=== PATIENT | male | born 1960 | race Caucasian/White ===

== ENCOUNTER → 2016-10-17 | Outpatient (REF) | payer OTHER ==
[2016-10-17 16:58] LABS: ADD MORPHOLOGY? YES; BASO % 0.8 % (0.0-1.0); EOS # 0.2 K/mm3 (0.0-0.50); LARGE UNSTAINED CELL # 0.1 K/mm3 (0.0-0.4); LARGE UNSTAINED CELL % 2.2 % (0.0-4.0); LYMPH # 1.3 K/mm3 (1.5-4.5); LYMPH % 21.5 % (24.0-44.0); MEAN CORPUSCULAR HEMOGLOBIN 20.2 pg (27.0-33.0); MEAN CORPUSCULAR HGB CONC 28.6 g/dl (32.0-36.5); MEAN CORPUSCULAR VOLUME 70.6 fl (80.0-96.0); MONO # 0.4 K/mm3 (0.0-0.8); MONO % 6.1 % (0.0-5.0); NEUTROPHILS # 4.1 K/mm3 (1.8-7.7); NEUTROPHILS % 66.4 % (36.0-66.0); PLATELET COUNT, AUTOMATED 308 k/mm3 (150-450); RED CELL DISTRIBUTION WIDTH 16.9 % (11.5-14.5); WHITE BLOOD COUNT 6.1 K/mm3 (4.0-10.0)
[2016-10-17 18:16] LABS: ANISOCYTOSIS 1+; HYPOCHROMASIA 2+; MICROCYTOSIS 2+
== END | disposition home or self-care (01) ==
LOC: M SFHCPLAZ 09:32 → M LABDRAWC 09:47
PROVIDERS: ATTEND Internal Medicine Infectious Disease
DX: D50.9 Iron deficiency anemia, unspecified (principal)

== ENCOUNTER → 2016-10-17 | Outpatient (CLI) | payer OTHER ==
--- NOTE | 2016-10-17 10:40 | REP ---
Chest two views HISTORY: Shortness of breath Comparison: 07/14/2016 The lungs are clear. The heart is normal in size. The pulmonary vasculature is normal in appearance. There are old compression fractures of several mid thoracic vertebral bodies. IMPRESSION: No acute disease.
== END | disposition home or self-care (01) ==
LOC: M CLY 10:09
PROVIDERS: ATTEND Surgery
DX: R06.02 Shortness of breath (principal)

== ENCOUNTER → 2016-12-27 | Outpatient (REF) | payer OTHER | LOC: M LAB REF 16:14 | PROVIDERS: ATTEND Surgery | DX: I87.311 Chronic venous hypertension (idiopathic) with ulcer of right lower extremity (principal) ==

== ENCOUNTER → 2017-02-15 | Outpatient (CLI) | payer OTHER ==
[2017-02-15 14:00] LABS: ANION GAP 6 MEQ/L (8-16); BLOOD UREA NITROGEN 13 MG/DL (7-18); CALCIUM LEVEL 8.3 MG/DL (8.5-10.1); CARBON DIOXIDE LEVEL 29 MEQ/L (21-32); CHLORIDE LEVEL 105 MEQ/L (98-107); CREATININE FOR GFR 0.82 MG/DL (0.70-1.30); GLOMERULAR FILTRATION RATE > 60.0 (>56); GLUCOSE, FASTING 87 MG/DL (70-105); SODIUM LEVEL 140 MEQ/L (136-145)
== END ==
LOC: M LAB 12:42
PROVIDERS: ATTEND Surgery Vascular Surgery
DX: I70.244 Atherosclerosis of native arteries of left leg with ulceration of heel and midfoot (principal)

== ENCOUNTER → 2017-02-16 | Outpatient (CLI) | payer OTHER ==
[~2017-02-16] MED LIST: ELIQ5TAB PO; FOLI1TAB4 PO; GABA-282 PO; GABA-283 PO; HYDR-3719 PO; HYDRPOW48 PO; IRON50TA PO; ISOVUE-300 61% 50ML VIAL (Q9967) As Ordered ONE; LIDOCAINE 1% MDV 20ML VIAL As Ordered ONE; MIDAZOLAM INJ 2 MG/2 ML VIAL (J2250) As Ordered ONE; NORCO, ANEXSIA 5/325MG TABLET (HYDROcodone/ACETAMINOPHEN) As Ordered ONE; ROCE1INJ4 IV; fentaNYL 100 MCG/2 ML INJECTION (J3010) As Ordered ONE
--- NOTE | 2017-03-08 18:42 | REP ---
IMAGES DURING ANGIOGRAM OF ABDOMINAL AORTA AND RIGHT LOWER EXTREMITY: Multiple images are obtained during angiography of abdominal aorta and right lower extremity. Pigtail catheter is seen in the abdominal aorta. Contrast is injected with contrast extending through the arterial system of the right lower extremity. Fluoroscopy time 1.4 minutes. Signed by Van Low MD 03/08/2017 07:17 P
--- NOTE | 2017-03-28 10:58 | RO ---
DATE OF PROCEDURE: 02/16/2017 PREPROCEDURE DIAGNOSIS: Nonhealing right lower extremity venous stasis ulcer. POSTPROCEDURE DIAGNOSIS: Nonhealing right lower extremity venous stasis ulcer. PROCEDURE: Aortogram, iliofemoral angiogram, selective right common femoral artery catheter placement with right lower extremity angiogram, Mynx closure of the left common femoral arteriotomy. SURGEON: Dr. Ye Garvey. UNDERWRITING CLERKS SUPERVISOR: ANESTHESIA: Local with sedation with 2 mg of Versed and 125 mcg of Fentanyl. ESTIMATED BLOOD LOSS: FLUORO TIME: 1.4 minutes. CONTRAST: 15 mL. SEDATION TIME: From 8:55 a.m. to 9:45 a.m. with the sedation and cardiopulmonary monitoring performed by the nurse in the room under my supervision. I was present for and directed the entire case. COMPLICATIONS: None. DRAINS: None. SPECIMENS: None. IMPLANTS: Left femoral Mynx closure device. INDICATION: Patient is a 56-year-old male with nonhealing venous stasis ulcer who has undergone venous ablation as well as aggressive wound care with nonhealing of the right lower extremity wound. The patient was evaluated and noted to have diminished pulses in the right lower extremity and a right lower extremity angiogram with possible angioplasty and stent was recommended. Risks, benefits and alternative treatment options were discussed with the patient. Alternative treatment options including to but were not limited to no intervention with continued conservative therapy. Risks included but were not limited to infection, bleeding, renal failure requiring hemodialysis, possible need for open surgical intervention, cerebrovascular accident, myocardial infarction, pulmonary embolus, deep venous thrombosis (DVT), loss of limb, loss of life and poor outcome. Patient understands, accepts these risks and consents to proceed. PROCEDURE: The patient was taken to the angiography suite and placed supine on the angiography room table and then prepped and draped in a standard surgical fashion. After adequate prepping and draping and time out confirming the correct patient and procedure, the left common femoral artery was cannulated with a micropuncture needle after anesthetizing the overlying skin with 1% lidocaine. The micropuncture wire was advanced through the micropuncture needle which was upsized to a micropuncture sheath. A Bentson wire was advanced through the micropuncture sheath which was upsized to a #5-Estonian sheath. An Omniflush catheter was placed in the aorta and an aortogram was performed. Catheter was then pulled down to the level of the bifurcation iliac arteries and an iliofemoral angiogram was performed. Catheter was then directed over the bifurcation of the iliac arteries and placed in the right common femoral artery and a right lower extremity angiogram was performed. Catheter was then removed over a Bentson wire and a Mynx closure device was used to close the arteriotomy in the left common femoral artery with an additional 15 minutes of adjunctive pressure for hemostasis. Dressings were then applied. Patient tolerated the procedure well. All instrument, sponge and needle counts were correct at the end of the case. There were no complications. Dr. Garvey was present for and directed the entire case. Patient was transferred to the holding area and subsequently discharged in stable condition. RADIOLOGIC SUPERVISION INTERPRETATION: The initial aortogram showed the descending thoracic aorta from the diaphragm to the infrarenal aorta to be widely patent. The renal arteries were patent bilaterally as well as the superior mesenteric and celiac arteries. There was good filling of intercostal vessels off of the thoracic aorta as well as lumbar vessels off of the infrarenal aorta. There was some mild luminal irregularity in the infrarenal aorta but this did not appear to be significant or produce any limitation of flow. The left common femoral artery, superficial femoral artery, profunda femoris artery were widely patent proximally and there was no visualization of the left lower extremity below the puncture site. The left common iliac, external and internal iliac arteries were also widely patent. The right common iliac, external iliac and internal iliac as well as the common femoral artery were widely patent. A catheter was placed in the right common femoral artery and a right lower extremity angiogram was performed showing no disease noted in the common femoral, superficial femoral, profunda femoris or external iliac artery distally. The remainder of the superficial femoral artery was widely patent along its course into the popliteal artery with no disease noted. The above and below knee popliteal arteries were widely patent with some minor luminal irregularity. In the above knee popliteal artery, there was three vessel runoff in the below knee region via a small anterior tibial artery which was patent and had a high take off just below the level of the knee joint. The peroneal and posterior tibial arteries were patent as well. The anterior tibial artery was small with the posterior tibial artery being the dominant vessel. The posterior tibial and anterior tibial arteries were patent into the foot with good open vessels noted filling into the foot. A Mynx closure device was used to close the arteriotomy in the left common femoral artery.
== END ==
LOC: M IRPRO 06:55
PROVIDERS: ATTEND Surgery Vascular Surgery
DX: I70.244 Atherosclerosis of native arteries of left leg with ulceration of heel and midfoot (principal)
CPT/HCPCS: 36246; 75625; 75716; 99152; 99153; G0269

== ENCOUNTER → 2017-02-20 | Outpatient (REF) | payer OTHER | LOC: M LAB REF 16:29 | PROVIDERS: ATTEND Surgery | DX: I87.311 Chronic venous hypertension (idiopathic) with ulcer of right lower extremity (principal) ==

== ENCOUNTER → 2017-03-20 | Outpatient (REF) | payer OTHER ==
[~2017-03-20] MED LIST changes: -ELIQ5TAB PO; -FOLI1TAB4 PO; -GABA-283 PO; -HYDR-3719 PO; -IRON50TA PO; -ISOVUE-300 61% 50ML VIAL (Q9967) As Ordered ONE; -LIDOCAINE 1% MDV 20ML VIAL As Ordered ONE; -MIDAZOLAM INJ 2 MG/2 ML VIAL (J2250) As Ordered ONE; -NORCO, ANEXSIA 5/325MG TABLET (HYDROcodone/ACETAMINOPHEN) As Ordered ONE; -ROCE1INJ4 IV; -fentaNYL 100 MCG/2 ML INJECTION (J3010) As Ordered ONE
[2017-03-20 15:02] LABS: MEAN CORPUSCULAR HEMOGLOBIN 21.1 pg (27.0-33.0); MEAN CORPUSCULAR HGB CONC 29.6 g/dl (32.0-36.5); MEAN CORPUSCULAR VOLUME 71.3 fl (80.0-96.0); RED CELL DISTRIBUTION WIDTH 16.7 % (11.5-14.5); WHITE BLOOD COUNT 6.4 K/mm3 (4.0-10.0)
== END ==
LOC: M LAB REF 13:08
PROVIDERS: ATTEND Surgery
DX: I87.311 Chronic venous hypertension (idiopathic) with ulcer of right lower extremity (principal)

== ENCOUNTER → 2017-03-27 | Outpatient (REF) | payer OTHER ==
[2017-03-27 18:44] LABS: ANION GAP 6 MEQ/L (8-16); BLOOD UREA NITROGEN 11 MG/DL (7-18); CALCIUM LEVEL 8.4 MG/DL (8.5-10.1); CARBON DIOXIDE LEVEL 29 MEQ/L (21-32); CHLORIDE LEVEL 108 MEQ/L (98-107); CREATININE FOR GFR 0.87 MG/DL (0.70-1.30); GLOMERULAR FILTRATION RATE > 60.0 (>56); GLUCOSE, FASTING 57 MG/DL (70-105); POTASSIUM SERUM 4.8 MEQ/L (3.5-5.1); SODIUM LEVEL 143 MEQ/L (136-145)
== END ==
LOC: M LAB REF 16:36
PROVIDERS: ATTEND Surgery
DX: I87.311 Chronic venous hypertension (idiopathic) with ulcer of right lower extremity (principal)

== ENCOUNTER → 2017-03-29 | Outpatient (CLI) | payer OTHER ==
--- NOTE | 2017-03-30 11:12 | REP ---
RIGHT LOWER EXTREMITY DUPLEX DOPPLER VENOUS ULTRASOUND WITH EVALUATION FOR VENOUS REFLUX: Real-time sonographic compression and duplex Doppler interrogation of the right lower extremity deep vein system performed. Right common femoral, superficial femoral, and popliteal veins are fully compressible with transducer pressure and demonstrate normal spontaneous and phasic flow without evidence of deep venous thrombosis. Evaluation for venous reflux is performed and compared to a prior study of 03/02/2016. There is reflux in the right common femoral vein as well as proximal and mid superficial femoral vein and popliteal vein somewhat increased since the prior study. There is no anterior accessory greater saphenous vein present. Greater saphenous vein in the proximal thigh does not demonstrate reflux, AP diameter is 9 mm. There is reflux in the greater saphenous vein at the mid thigh level which measures 6 mm in diameter. There is no reflux in the greater saphenous vein at the level of the knee, AP diameter of that vessel is 3 mm. There is reflux in the less saphenous vein, AP diameter 5 mm. Mid thigh collateral vessel connects with the greater saphenous vein at the mid thigh level and then reconnects with the greater saphenous vein at the level of the knee. Another collateral connecting with the mid greater saphenous vein is seen posteriorly in the thigh and communicates with the lesser saphenous vein posterior to the knee, with mild reflux in that collateral vessel. A large right inguinal lymph node measures 5.1 x 1.0 x 2.6 cm. Signed by Van Low MD 03/30/2017 03:15 P
== END ==
LOC: M RAD 11:01
PROVIDERS: ATTEND Surgery
DX: I87.311 Chronic venous hypertension (idiopathic) with ulcer of right lower extremity (principal)

== ENCOUNTER → 2017-04-05 | Outpatient (REF) | payer OTHER ==
[~2017-04-05] MED LIST changes: +ELIQ5TAB PO; +FOLI1TAB4 PO; +GABA-283 PO; +HYDR-3719 PO; +IRON50TA PO; +ROCE1INJ4 IV
[2017-04-05 17:03] LABS: ADD MORPHOLOGY? YES; BASO # 0.1 K/mm3 (0.0-0.2); BASO % 1.4 % (0.0-1.0); EOS # 0.2 K/mm3 (0.0-0.50); EOS % 3.3 % (0.0-3.0); LARGE UNSTAINED CELL # 0.2 K/mm3 (0.0-0.4); LARGE UNSTAINED CELL % 2.2 % (0.0-4.0); LYMPH # 1.5 K/mm3 (1.5-4.5); MEAN CORPUSCULAR HEMOGLOBIN 21.3 pg (27.0-33.0); MEAN CORPUSCULAR HGB CONC 29.5 g/dl (32.0-36.5); MONO # 0.6 K/mm3 (0.0-0.8); MONO % 8.8 % (0.0-5.0); NEUTROPHILS # 4.1 K/mm3 (1.8-7.7); NEUTROPHILS % 62.4 % (36.0-66.0); PLATELET COUNT, AUTOMATED 246 k/mm3 (150-450); RED CELL DISTRIBUTION WIDTH 16.8 % (11.5-14.5); WHITE BLOOD COUNT 6.6 K/mm3 (4.0-10.0)
[2017-04-05 18:47] LABS: ANISOCYTOSIS 1+; HYPOCHROMASIA 2+; MICROCYTOSIS 2+; OVALOCYTES 1+
== END ==
LOC: M SFHCCLAY 10:53
PROVIDERS: ATTEND Nurse Practitioner
DX: Z80.6 Family history of leukemia (principal); Z12.5 Encounter for screening for malignant neoplasm of prostate

== ENCOUNTER → 2017-04-06 | Outpatient (CLI) | payer OTHER ==
--- NOTE | 2017-04-06 15:03 | REP ---
MRI RIGHT TIBIA-FIBULA WITHOUT AND WITH IV CONTRAST: HISTORY: Chronic venous hypertension. Ulcer right lower extremity. TECHNIQUE: Axial, coronal, and sagittal imaging planes are utilized. T1- and T2-weighted scans are obtained with and without fat saturation. Gadolinium enhancement dose is 20 mL of intravenous ProHance. The study was accomplished with the patient's wound dressing and compression boot in place. MRI FINDINGS: There is evidence of periosteal thickening and reaction along the anterior tibial cortex at the mid diaphysis level of the tibia. There is some underlying marrow edema associated with this. Periosteal reaction spans approximately 11 cm in craniocaudal length of the tibia. It is visible on coronal images along the medial cortex. No definite fibular periosteal reaction is seen. There is diffuse soft tissue edema in the calf soft tissues. No soft tissue abscess is seen. Post gadolinium enhanced images show no significant gadolinium enhancement. IMPRESSION: Chronic-appearing periosteal reaction along the anterior and medial cortex of the tibial diaphysis. Chronic osteomyelitis is difficult to exclude. No evidence of intraosseous tract or soft tissue abscess. Diffuse soft tissue edema. Signed by Cuba Maynard MD 04/06/2017 05:13 P
== END ==
LOC: M RAD 10:20
PROVIDERS: ATTEND Surgery
DX: I87.2 Venous insufficiency (chronic) (peripheral) (principal)

== ENCOUNTER 2017-04-26 14:33 | Outpatient (CLI) | payer OTHER ==
[~2017-04-26] VITALS: Ht 185.4 cm; Wt 105.6 kg
[~2017-04-26 14:33] MED LIST changes: -ELIQ5TAB PO; -FOLI1TAB4 PO; -GABA-283 PO; -HYDR-3719 PO; -IRON50TA PO; -ROCE1INJ4 IV; +SODIUM CHLORIDE 0.9% INJ 10 ML SYR IV SCH; +cefTRIAXone SOD 2 GM in D5W MINI-BAG PLUS 50 ML IV ONE
[2017-06-20] MEDS ORDERED: ROCE1INJ4 IV (11:06)
[2017-06-20] MEDS ORDERED: FOLI1TAB4 PO (11:06)
[2017-06-20] MEDS ORDERED: GABA-283 PO (11:06)
[2017-06-20] MEDS ORDERED: IRON50TA PO (11:06)
== END 2017-04-26 16:00 | disposition home or self-care (01) ==
LOC: M INFU 14:33
PROVIDERS: ATTEND Internal Medicine Infectious Disease
DX: M86.9 Osteomyelitis, unspecified (principal); A49.01 Methicillin susceptible Staphylococcus aureus infection, unspecified site; Z79.899 Other long term (current) drug therapy

== ENCOUNTER → 2017-04-26 | Outpatient (CLI) | payer OTHER ==
--- NOTE | 2017-04-26 16:51 | REP ---
Procedure: PICC line insertion with Paulino The procedure was performed under the direct supervision of Dr. Maynard. The risks and benefits of the procedure were explained to the patient and informed consent was obtained. The right brachial vein was localized using ultrasound guidance. The skin was prepped and draped in a sterile fashion. 2% lidocaine was used as a local anesthetic. Using ultrasound guidance the brachial vein was cannulated and a 0.018 guidewire was inserted and advanced to the SVC using fluoroscopic guidance. The needle was removed and a 4.5 Slovak dilator and peel-away sheath was inserted over the guide wire. A 4.5 Slovak single lumen catheter was cut to length of 46 cm. The dilator was removed and the catheter was inserted over the guide wire with the tip ending in the SVC. The peel-away sheath was removed and the catheter was flushed with heparinized saline as per Hospital protocol. The catheter was affixed to the skin and a sterile dressing was applied. The the patient tolerated the procedure well and there were no immediate complications. 0.3 minutes of fluoro time was utilized for this procedure. Reviewed by CHE Crowell 04/26/2017 03:55 PSigned by Cuba Maynard MD 04/26/2017 04:42 P
== END ==
LOC: M RADPRO 13:34
PROVIDERS: ATTEND Internal Medicine Infectious Disease
DX: A49.01 Methicillin susceptible Staphylococcus aureus infection, unspecified site (principal); Z79.899 Other long term (current) drug therapy; F17.210 Nicotine dependence, cigarettes, uncomplicated; I87.311 Chronic venous hypertension (idiopathic) with ulcer of right lower extremity

== ENCOUNTER 2017-05-01 15:26 | Emergency (ER) | payer OTHER ==
[~2017-05-01] VITALS: Ht 185.4 cm; Wt 105.1 kg
[~2017-05-01 15:26] MED LIST changes: -ELIQ5TAB PO; -FOLI1TAB4 PO; -GABA-283 PO; -HYDR-3719 PO; -IRON50TA PO; -ROCE1INJ4 IV
[2017-05-01 16:16] LABS: ADD MORPHOLOGY? YES; BASO # 0.1 K/mm3 (0.0-0.2); EOS # 0.2 K/mm3 (0.0-0.50); EOS % 2.7 % (0.0-3.0); LARGE UNSTAINED CELL # 0.1 K/mm3 (0.0-0.4); LYMPH # 1.8 K/mm3 (1.5-4.5); LYMPH % 21.7 % (24.0-44.0); MEAN CORPUSCULAR HGB CONC 30.3 g/dl (32.0-36.5); MEAN CORPUSCULAR VOLUME 69.3 fl (80.0-96.0); MONO # 0.4 K/mm3 (0.0-0.8); MONO % 5.1 % (0.0-5.0); NEUTROPHILS # 5.4 K/mm3 (1.8-7.7); NEUTROPHILS % 68.4 % (36.0-66.0); PLATELET COUNT, AUTOMATED 276 k/mm3 (150-450); RED CELL DISTRIBUTION WIDTH 16.7 % (11.5-14.5); WHITE BLOOD COUNT 7.9 K/mm3 (4.0-10.0)
[2017-05-01 16:23] LABS: INR 1.08
--- NOTE | 2017-05-01 16:27 | REP ---
Portable chest, 04:12 p.m., single AP view, the patient upright: Comparison is and 2016. The lung ferreira are clear. Cardiac size is normal. The octavia, mediastinum, and bony thorax are unchanged. There is a right upper extremity PICC line, not present previously, terminating satisfactorily in the superior vena cava. Impression: There are no acute cardiopulmonary findings. There is a right upper extremity PICC line. Signed by Van Ferrara MD 05/01/2017 04:19 P
[2017-05-01] MEDS ORDERED: GABAPENTIN 300 MG CAP PO ONE (16:30)
[2017-05-01] MEDS ORDERED: NORCO, ANEXSIA 5/325MG TABLET (HYDROcodone/ACETAMINOPHEN) PO ONE (16:30)
[2017-05-01 16:42] LABS: ALBUMIN 2.8 GM/DL (3.2-5.2); ALBUMIN/GLOBULIN RATIO 0.67 (1.00-1.93); ALKALINE PHOSPHATASE 92 U/L (45-117); ALT/SGPT 11 U/L (12-78); ANION GAP 7 MEQ/L (8-16); AST/SGOT 5 U/L (15-37); BILIRUBIN,DIRECT < 0.1 MG/DL (0.0-0.2); BILIRUBIN,TOTAL 0.2 MG/DL (0.2-1.0); BLOOD UREA NITROGEN 10 MG/DL (7-18); CALCIUM LEVEL 8.4 MG/DL (8.5-10.1); CARBON DIOXIDE LEVEL 26 MEQ/L (21-32); CHLORIDE LEVEL 104 MEQ/L (98-107); CREATININE FOR GFR 0.86 MG/DL (0.70-1.30); FREE T4 1.07 NG/DL (0.76-1.46); GLOMERULAR FILTRATION RATE > 60.0 (>56); GLUCOSE, FASTING 111 MG/DL (70-105); POTASSIUM SERUM 3.9 MEQ/L (3.5-5.1); SODIUM LEVEL 137 MEQ/L (136-145)
[2017-05-01] MEDS ORDERED: ISOVUE-370 76% 100ML VIAL (Q9967) As Ordered ONE (17:11)
[2017-05-01 17:20] LABS: ANISOCYTOSIS 1+; HYPOCHROMASIA 1+; MICROCYTOSIS 3+
[2017-05-01] MEDS ORDERED: HYDR-3719 PO (17:35)
--- NOTE | 2017-05-01 17:46 | REP ---
CT of the chest with IV contrast, pulmonary artery CT angiography: There are no comparison studies. There are no emboli in the pulmonary trunk or central pulmonary arteries. There are no emboli in the pulmonary artery lobe or segment branches. There is dependent atelectasis in the lung ferreira. Lung ferreira are otherwise clear. There are no acute infiltrates. There are no masses or nodules. There is a mildly enlarged right hilar node measuring up to 13 mm short axis. There is no left hilar lymph node enlargement . There is a calcified granuloma in the left hilar node. The thoracic aorta is unremarkable. Cardiac size is normal. There is no pericardial effusion. The visualized upper abdominal contents are unremarkable. Impression: There are no pulmonary emboli. There is an enlarged right hilar node. There is a calcified granuloma in the left hilar node. There is dependent atelectasis in the posterior lung ferreira. Lung ferreira otherwise clear. Signed by Van Ferrara MD 05/01/2017 05:37 P
[2017-05-01] MEDS ORDERED: APIXABAN 5 MG TAB (ELIQUIS) PO ONE (18:15)
[2017-05-01] MEDS ORDERED: ELIQ5TAB PO (18:16)
[2017-05-01] MEDS ORDERED: cefTRIAXone SOD 2 GM in D5W MINI-BAG PLUS 50 ML IV ONE (18:30)
[2017-05-01 18:41] VITALS: BP 115/71
[2017-05-01] MEDS ORDERED: SODIUM CHLORIDE 0.9% INJ 10 ML SYR IV ONE (18:45)
--- NOTE | 2017-05-03 11:14 | ECGEPIP ---
Stationary ECG Study [facility] - ED Test Date: 2017-05-01 Pat Name: HALEY HANSEN Department: Room: - Gender: M Attending Ambulatory Care: adams : 1960 Requested By: Benjamin Leach Order Number: [id number] Reading MD: Eulalia Gomez Measurements Intervals [place] Rate: 75 P: 52 [place]: 184 QRS: 3 QRSD: 104 T: -12 QT: 386 QTc: 433 Interpretive Statements SINUS RHYTHM NSTTW ABNORMALITY NO PRIOR FOR COMPARISON Electronically Signed On 05-03-2017 11:13:52 EDT by Eulalia Gomez
[2017-06-20] MEDS ORDERED: ROCE1INJ4 IV (11:06)
[2017-06-20] MEDS ORDERED: GABA-283 PO (11:06)
[2017-06-20] MEDS ORDERED: IRON50TA PO (11:06)
[2017-06-20] MEDS ORDERED: FOLI1TAB4 PO (11:06)
== END 2017-05-01 19:52 | disposition home or self-care (01) ==
LOC: M ED 15:26
DX: I82.A11 Acute embolism and thrombosis of right axillary vein (principal); R07.9 Chest pain, unspecified; M86.9 Osteomyelitis, unspecified; Z79.899 Other long term (current) drug therapy; Z95.9 Presence of cardiac and vascular implant and graft, unspecified
CPT/HCPCS: 71010; 71275; 80048; 80076; 82550; 82553; 84439; 84443; 85025; 85610; 85730; 87040; 93000; 93041; 94760; 96365; 99284; J0696; Q9967

== ENCOUNTER → 2017-05-01 | Outpatient (CLI) | payer OTHER ==
[~2017-05-01] MED LIST changes: +ELIQ5TAB PO; +FOLI1TAB4 PO; +GABA-283 PO; +HYDR-3719 PO; +IRON50TA PO; +ROCE1INJ4 IV; -SODIUM CHLORIDE 0.9% INJ 10 ML SYR IV SCH; -cefTRIAXone SOD 2 GM in D5W MINI-BAG PLUS 50 ML IV ONE
--- NOTE | 2017-05-01 15:16 | REP ---
RIGHT UPPER EXTREMITY DUPLEX DOPPLER VENOUS ULTRASOUND: Real-time compression and duplex Doppler interrogation of the right upper extremity deep vein system is performed. The right jugular vein is patent with no intraluminal thrombus, compressible with transducer pressure. There is a right arm PICC line in place. There is moderate thrombus surrounding the PICC line in the subclavian vein. There is also deep vein thrombosis in the right axillary and basilic veins surrounding the PICC line. Signed by Van Low MD 05/01/2017 03:32 P
== END ==
LOC: M RAD 13:36
PROVIDERS: ATTEND Internal Medicine Infectious Disease
DX: I82.B11 Acute embolism and thrombosis of right subclavian vein (principal); I82.A11 Acute embolism and thrombosis of right axillary vein; I82.611 Acute embolism and thrombosis of superficial veins of right upper extremity

== ENCOUNTER → 2017-05-04 | Outpatient (REF) | payer OTHER ==
[~2017-05-04] MED LIST changes: +ELIQ5TAB PO; +FOLI1TAB4 PO; +GABA-283 PO; +HYDR-3719 PO; +IRON50TA PO; +ROCE1INJ4 IV
[2017-05-04 12:14] LABS: ANION GAP 7 MEQ/L (8-16); BLOOD UREA NITROGEN 10 MG/DL (7-18); CALCIUM LEVEL 8.6 MG/DL (8.5-10.1); CARBON DIOXIDE LEVEL 28 MEQ/L (21-32); CHLORIDE LEVEL 110 MEQ/L (98-107); CREATININE FOR GFR 0.89 MG/DL (0.70-1.30); GLOMERULAR FILTRATION RATE > 60.0 (>56); GLUCOSE, FASTING 85 MG/DL (70-105); POTASSIUM SERUM 4.3 MEQ/L (3.5-5.1); SODIUM LEVEL 145 MEQ/L (136-145)
[2017-05-04 12:39] LABS: ADD MORPHOLOGY? YES; BASO # 0.1 K/mm3 (0.0-0.2); EOS # 0.2 K/mm3 (0.0-0.50); EOS % 2.7 % (0.0-3.0); LARGE UNSTAINED CELL # 0.1 K/mm3 (0.0-0.4); LARGE UNSTAINED CELL % 1.5 % (0.0-4.0); LYMPH # 1.9 K/mm3 (1.5-4.5); LYMPH % 24.5 % (24.0-44.0); MEAN CORPUSCULAR HEMOGLOBIN 21.2 pg (27.0-33.0); MEAN CORPUSCULAR HGB CONC 30.4 g/dl (32.0-36.5); MEAN CORPUSCULAR VOLUME 69.8 fl (80.0-96.0); MONO # 0.4 K/mm3 (0.0-0.8); MONO % 5.4 % (0.0-5.0); NEUTROPHILS % 64.9 % (36.0-66.0); PLATELET COUNT, AUTOMATED 289 k/mm3 (150-450); RED CELL DISTRIBUTION WIDTH 16.6 % (11.5-14.5); WHITE BLOOD COUNT 7.6 K/mm3 (4.0-10.0)
[2017-05-04 13:23] LABS: ANISOCYTOSIS 1+; HYPOCHROMASIA 1+; OVALOCYTES 1+
[2017-05-04 13:24] LABS: MICROCYTOSIS 3+
[2017-05-04 14:15] LABS: ERYTHROCYTE SEDIMENTATION RATE 63 mm/hr (0-20)
== END ==
LOC: M LAB REF 11:35
PROVIDERS: ATTEND Internal Medicine Infectious Disease
DX: A49.01 Methicillin susceptible Staphylococcus aureus infection, unspecified site (principal); M86.661 Other chronic osteomyelitis, right tibia and fibula

== ENCOUNTER → 2017-05-07 | Outpatient (REF) | payer OTHER ==
[2017-05-07 18:52] LABS: ANION GAP 9 MEQ/L (8-16); BLOOD UREA NITROGEN 10 MG/DL (7-18); CALCIUM LEVEL 8.5 MG/DL (8.5-10.1); CARBON DIOXIDE LEVEL 25 MEQ/L (21-32); CHLORIDE LEVEL 107 MEQ/L (98-107); CREATININE FOR GFR 0.92 MG/DL (0.70-1.30); GLOMERULAR FILTRATION RATE > 60.0 (>56); GLUCOSE, FASTING 92 MG/DL (70-105); POTASSIUM SERUM 3.9 MEQ/L (3.5-5.1); SODIUM LEVEL 141 MEQ/L (136-145)
[2017-05-07 20:15] LABS: ADD MORPHOLOGY? YES; BASO % 0.8 % (0.0-1.0); EOS # 0.1 K/mm3 (0.0-0.50); EOS % 2.5 % (0.0-3.0); LARGE UNSTAINED CELL # 0.1 K/mm3 (0.0-0.4); LARGE UNSTAINED CELL % 1.7 % (0.0-4.0); LYMPH # 1.4 K/mm3 (1.5-4.5); LYMPH % 26.8 % (24.0-44.0); MEAN CORPUSCULAR HEMOGLOBIN 21.8 pg (27.0-33.0); MEAN CORPUSCULAR HGB CONC 31.1 g/dl (32.0-36.5); MEAN CORPUSCULAR VOLUME 70.2 fl (80.0-96.0); MONO # 0.4 K/mm3 (0.0-0.8); MONO % 6.7 % (0.0-5.0); NEUTROPHILS # 3.3 K/mm3 (1.8-7.7); NEUTROPHILS % 61.5 % (36.0-66.0); PLATELET COUNT, AUTOMATED 239 k/mm3 (150-450); RED CELL DISTRIBUTION WIDTH 16.7 % (11.5-14.5); WHITE BLOOD COUNT 5.3 K/mm3 (4.0-10.0)
[2017-05-07 21:19] LABS: ERYTHROCYTE SEDIMENTATION RATE 75 mm/hr (0-20)
[2017-05-07 21:29] LABS: ANISOCYTOSIS 2+; HYPOCHROMASIA 1+; MICROCYTOSIS 2+
== END ==
LOC: M LAB REF 18:10
PROVIDERS: ATTEND Internal Medicine Infectious Disease
DX: A49.01 Methicillin susceptible Staphylococcus aureus infection, unspecified site (principal)

== ENCOUNTER → 2017-05-14 | Outpatient (REF) | payer OTHER ==
[2017-05-14 15:24] LABS: ADD MORPHOLOGY? YES; BASO % 0.9 % (0.0-1.0); EOS # 0.2 K/mm3 (0.0-0.50); EOS % 2.8 % (0.0-3.0); LARGE UNSTAINED CELL # 0.1 K/mm3 (0.0-0.4); LARGE UNSTAINED CELL % 2.1 % (0.0-4.0); LYMPH # 1.2 K/mm3 (1.5-4.5); LYMPH % 22.4 % (24.0-44.0); MEAN CORPUSCULAR HEMOGLOBIN 21.5 pg (27.0-33.0); MEAN CORPUSCULAR HGB CONC 30.6 g/dl (32.0-36.5); MEAN CORPUSCULAR VOLUME 70.1 fl (80.0-96.0); MONO # 0.4 K/mm3 (0.0-0.8); MONO % 7.3 % (0.0-5.0); NEUTROPHILS # 3.4 K/mm3 (1.8-7.7); NEUTROPHILS % 64.5 % (36.0-66.0); PLATELET COUNT, AUTOMATED 195 k/mm3 (150-450); RED CELL DISTRIBUTION WIDTH 17.4 % (11.5-14.5); WHITE BLOOD COUNT 5.3 K/mm3 (4.0-10.0)
[2017-05-14 15:50] LABS: ERYTHROCYTE SEDIMENTATION RATE 70 mm/hr (0-20)
[2017-05-14 16:07] LABS: ANION GAP 10 MEQ/L (8-16); BLOOD UREA NITROGEN 10 MG/DL (7-18); CALCIUM LEVEL 8.1 MG/DL (8.5-10.1); CARBON DIOXIDE LEVEL 25 MEQ/L (21-32); CHLORIDE LEVEL 107 MEQ/L (98-107); CREATININE FOR GFR 0.83 MG/DL (0.70-1.30); GLOMERULAR FILTRATION RATE > 60.0 (>56); GLUCOSE, FASTING 119 MG/DL (70-105); POTASSIUM SERUM 4.2 MEQ/L (3.5-5.1); SODIUM LEVEL 142 MEQ/L (136-145)
[2017-05-14 16:49] LABS: ANISOCYTOSIS 1+
[2017-05-14 16:50] LABS: HYPOCHROMASIA 1+; MICROCYTOSIS 3+; SCHISTOCYTES 1+
[2017-05-14 16:51] LABS: OVALOCYTES 1+; POIKILOCYTOSIS 1+; POLYCHROMASIA 1+
== END ==
LOC: M LAB REF 14:52
PROVIDERS: ATTEND Internal Medicine Infectious Disease
DX: A49.01 Methicillin susceptible Staphylococcus aureus infection, unspecified site (principal)

== ENCOUNTER → 2017-05-21 | Outpatient (REF) | payer OTHER ==
[2017-05-21 16:44] LABS: ADD MORPHOLOGY? YES; BASO % 0.9 % (0.0-1.0); EOS # 0.1 K/mm3 (0.0-0.50); EOS % 2.4 % (0.0-3.0); LARGE UNSTAINED CELL # 0.1 K/mm3 (0.0-0.4); LARGE UNSTAINED CELL % 1.3 % (0.0-4.0); LYMPH # 1.5 K/mm3 (1.5-4.5); LYMPH % 24.3 % (24.0-44.0); MEAN CORPUSCULAR HEMOGLOBIN 21.6 pg (27.0-33.0); MEAN CORPUSCULAR HGB CONC 30.3 g/dl (32.0-36.5); MEAN CORPUSCULAR VOLUME 71.1 fl (80.0-96.0); MONO # 0.4 K/mm3 (0.0-0.8); MONO % 6.9 % (0.0-5.0); NEUTROPHILS # 3.7 K/mm3 (1.8-7.7); NEUTROPHILS % 64.2 % (36.0-66.0); PLATELET COUNT, AUTOMATED 209 k/mm3 (150-450); RED CELL DISTRIBUTION WIDTH 18.1 % (11.5-14.5); WHITE BLOOD COUNT 5.8 K/mm3 (4.0-10.0)
[2017-05-21 17:06] LABS: HYPOCHROMASIA 1+; MICROCYTOSIS 1+
[2017-05-21 17:14] LABS: ERYTHROCYTE SEDIMENTATION RATE 82 mm/hr (0-20)
[2017-05-21 18:04] LABS: ANION GAP 9 MEQ/L (8-16); BLOOD UREA NITROGEN 8 MG/DL (7-18); CALCIUM LEVEL 8.4 MG/DL (8.5-10.1); CARBON DIOXIDE LEVEL 25 MEQ/L (21-32); CHLORIDE LEVEL 106 MEQ/L (98-107); CREATININE FOR GFR 0.83 MG/DL (0.70-1.30); GLOMERULAR FILTRATION RATE > 60.0 (>56); GLUCOSE, FASTING 74 MG/DL (70-105); POTASSIUM SERUM 4.2 MEQ/L (3.5-5.1); SODIUM LEVEL 140 MEQ/L (136-145)
== END ==
LOC: M LAB REF 15:46
PROVIDERS: ATTEND Internal Medicine Infectious Disease
DX: A49.01 Methicillin susceptible Staphylococcus aureus infection, unspecified site (principal); I87.311 Chronic venous hypertension (idiopathic) with ulcer of right lower extremity; M86.661 Other chronic osteomyelitis, right tibia and fibula

== ENCOUNTER → 2017-05-24 | Outpatient (CLI) | payer OTHER ==
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
== END ==
LOC: M PAIN 15:00
PROVIDERS: ATTEND Anesthesiology
DX: M54.5 Low back pain (principal); L97.814 Non-pressure chronic ulcer of other part of right lower leg with necrosis of bone; M86.361 Chronic multifocal osteomyelitis, right tibia and fibula; I87.311 Chronic venous hypertension (idiopathic) with ulcer of right lower extremity; Z89.512 Acquired absence of left leg below knee; E53.8 Deficiency of other specified B group vitamins; D50.9 Iron deficiency anemia, unspecified; A49.01 Methicillin susceptible Staphylococcus aureus infection, unspecified site; A49.8 Other bacterial infections of unspecified site; G89.4 Chronic pain syndrome; M79.89 Other specified soft tissue disorders; Z79.891 Long term (current) use of opiate analgesic; Z72.0 Tobacco use; Z79.899 Other long term (current) drug therapy

== ENCOUNTER → 2017-05-28 | Outpatient (REF) | payer OTHER ==
[2017-05-28 13:51] LABS: ANION GAP 10 MEQ/L (8-16); BLOOD UREA NITROGEN 14 MG/DL (7-18); CALCIUM LEVEL 7.9 MG/DL (8.5-10.1); CARBON DIOXIDE LEVEL 23 MEQ/L (21-32); CHLORIDE LEVEL 111 MEQ/L (98-107); CREATININE FOR GFR 0.87 MG/DL (0.70-1.30); GLOMERULAR FILTRATION RATE > 60.0 (>56); GLUCOSE, FASTING 112 MG/DL (70-105); SODIUM LEVEL 144 MEQ/L (136-145)
[2017-05-28 14:10] LABS: ADD MORPHOLOGY? YES; BASO % 0.8 % (0.0-1.0); EOS # 0.2 K/mm3 (0.0-0.50); EOS % 2.5 % (0.0-3.0); LARGE UNSTAINED CELL # 0.1 K/mm3 (0.0-0.4); LARGE UNSTAINED CELL % 1.5 % (0.0-4.0); LYMPH # 1.1 K/mm3 (1.5-4.5); LYMPH % 18.8 % (24.0-44.0); MONO # 0.3 K/mm3 (0.0-0.8); MONO % 5.7 % (0.0-5.0); NEUTROPHILS # 4.2 K/mm3 (1.8-7.7); NEUTROPHILS % 70.6 % (36.0-66.0); PLATELET COUNT, AUTOMATED 198 k/mm3 (150-450); RED CELL DISTRIBUTION WIDTH 17.1 % (11.5-14.5); WHITE BLOOD COUNT 5.9 K/mm3 (4.0-10.0)
[2017-05-28 14:32] LABS: ANISOCYTOSIS 1+; HYPOCHROMASIA 2+; MICROCYTOSIS 2+; OVALOCYTES 1+
[2017-05-28 14:39] LABS: ERYTHROCYTE SEDIMENTATION RATE 79 mm/hr (0-20)
== END ==
LOC: M SHH 13:04
PROVIDERS: ATTEND Internal Medicine Infectious Disease
DX: A49.01 Methicillin susceptible Staphylococcus aureus infection, unspecified site (principal)

== ENCOUNTER → 2017-06-12 | Outpatient (CLI) | payer OTHER ==
[2017-06-12 13:56] LABS: ANION GAP 8 MEQ/L (8-16); BLOOD UREA NITROGEN 11 MG/DL (7-18); CALCIUM LEVEL 8.5 MG/DL (8.5-10.1); CARBON DIOXIDE LEVEL 25 MEQ/L (21-32); CHLORIDE LEVEL 108 MEQ/L (98-107); CREATININE FOR GFR 0.82 MG/DL (0.70-1.30); GLOMERULAR FILTRATION RATE > 60.0 (>56); GLUCOSE, FASTING 64 MG/DL (70-105); POTASSIUM SERUM 4.3 MEQ/L (3.5-5.1); SODIUM LEVEL 141 MEQ/L (136-145)
[2017-06-12 14:11] LABS: ADD MANUAL DIFFER YES; MEAN CORPUSCULAR HEMOGLOBIN 22.5 pg (27.0-33.0); MEAN CORPUSCULAR HGB CONC 32.1 g/dl (32.0-36.5); MEAN CORPUSCULAR VOLUME 70.1 fl (80.0-96.0); PLATELET COUNT, AUTOMATED 219 k/mm3 (150-450); RED CELL DISTRIBUTION WIDTH 17.4 % (11.5-14.5); WHITE BLOOD COUNT 5.3 K/mm3 (4.0-10.0)
[2017-06-12 15:25] LABS: ANISOCYTOSIS 2+; EOSINOPHILS 3 % (0-5); MICROCYTOSIS 2+
[2017-06-12 15:26] LABS: HYPOCHROMASIA 1+
[2017-06-12 15:31] LABS: ERYTHROCYTE SEDIMENTATION RATE 54 mm/hr (0-20)
== END ==
LOC: M LAB 12:35
PROVIDERS: ATTEND Internal Medicine Infectious Disease
DX: A49.01 Methicillin susceptible Staphylococcus aureus infection, unspecified site (principal)

== ENCOUNTER → 2017-06-14 | Outpatient (CLI) | payer OTHER ==
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
== END ==
LOC: M PAIN 14:30
PROVIDERS: ATTEND Anesthesiology
DX: G89.4 Chronic pain syndrome (principal); M54.5 Low back pain; L97.929 Non-pressure chronic ulcer of unspecified part of left lower leg with unspecified severity; D64.9 Anemia, unspecified; Z89.512 Acquired absence of left leg below knee; Z79.891 Long term (current) use of opiate analgesic; Z79.01 Long term (current) use of anticoagulants; Z79.899 Other long term (current) drug therapy

== ENCOUNTER → 2017-07-05 | Outpatient (CLI) | payer OTHER ==
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
== END ==
LOC: M PAIN 14:00
PROVIDERS: ATTEND Anesthesiology
DX: G89.4 Chronic pain syndrome (principal); M54.5 Low back pain; I87.311 Chronic venous hypertension (idiopathic) with ulcer of right lower extremity; R26.9 Unspecified abnormalities of gait and mobility; F17.210 Nicotine dependence, cigarettes, uncomplicated; D50.9 Iron deficiency anemia, unspecified; Z79.01 Long term (current) use of anticoagulants; Z79.899 Other long term (current) drug therapy

== ENCOUNTER → 2017-08-28 | Outpatient (REF) | payer OTHER ==
[2017-08-28 19:36] LABS: MEAN CORPUSCULAR HEMOGLOBIN 21.3 pg (27.0-33.0); MEAN CORPUSCULAR HGB CONC 29.7 g/dl (32.0-36.5); MEAN CORPUSCULAR VOLUME 71.8 fl (80.0-96.0); PLATELET COUNT, AUTOMATED 320 10^3/uL (150-450); RED CELL DISTRIBUTION WIDTH 17.3 % (11.5-14.5); WHITE BLOOD COUNT 8.3 10^3/uL (4.0-10.0)
[2017-08-28 20:20] LABS: ALBUMIN 2.5 GM/DL (3.2-5.2); ALBUMIN/GLOBULIN RATIO 0.61 (1.00-1.93); ALKALINE PHOSPHATASE 82 U/L (45-117); ALT/SGPT 23 U/L (12-78); ANION GAP 6 MEQ/L (8-16); AST/SGOT 9 U/L (7-37); BILIRUBIN,TOTAL 0.2 MG/DL (0.2-1.0); BLOOD UREA NITROGEN 11 MG/DL (7-18); CALCIUM LEVEL 8.4 MG/DL (8.5-10.1); CARBON DIOXIDE LEVEL 28 MEQ/L (21-32); CHLORIDE LEVEL 104 MEQ/L (98-107); CREATININE FOR GFR 0.79 MG/DL (0.70-1.30); GLOMERULAR FILTRATION RATE > 60.0 (>56); GLUCOSE, FASTING 78 MG/DL (70-105); POTASSIUM SERUM 4.6 MEQ/L (3.5-5.1); SODIUM LEVEL 138 MEQ/L (136-145); TOTAL PROTEIN 6.6 GM/DL (6.4-8.2)
== END ==
LOC: M LAB REF 17:35
PROVIDERS: ATTEND Surgery
DX: I87.311 Chronic venous hypertension (idiopathic) with ulcer of right lower extremity (principal)

== ENCOUNTER → 2017-09-19 | Outpatient (CLI) | payer OTHER | LOC: M RAD 12:35 | PROVIDERS: ATTEND Surgery | DX: I87.311 Chronic venous hypertension (idiopathic) with ulcer of right lower extremity (principal); Z53.9 Procedure and treatment not carried out, unspecified reason ==

== ENCOUNTER → 2017-09-26 | Outpatient (CLI) | payer OTHER | LOC: M PAIN 14:30 | DX: G89.21 Chronic pain due to trauma (principal); M86.361 Chronic multifocal osteomyelitis, right tibia and fibula; F17.210 Nicotine dependence, cigarettes, uncomplicated; Z79.899 Other long term (current) drug therapy; Z89.512 Acquired absence of left leg below knee | CPT/HCPCS: G0463 ==

== ENCOUNTER → 2017-09-27 | Outpatient (CLI) | payer OTHER ==
[~2017-09-27] MED LIST changes: +PROHANCE 279.3MG/ML 15ML VIAL (A9576) As Ordered ONE; +PROHANCE 279.3MG/ML 5ML VIAL (A9576) As Ordered ONE
--- NOTE | 2017-09-27 13:41 | REP ---
MRI RIGHT LOWER LEG: Multiple sequences obtained in the axial, coronal and sagittal planes. Comparison is made with a prior study 04/06/2017. Once again, there is an area of ill-defined low signal T1 and high signal T2 weighted images in the mid shaft of the tibia, unchanged since the prior exam. There is chronic appear periosteal thickening anteromedially essentially unchanged. Similar findings are seen to a lesser extent in the adjacent shaft of the fibula. Findings are most consistent with chronic osteomyelitis. There is diffuse ill-defined high signal in the adjacent soft tissues surrounding these bones, likely representing cellulitis. There is diffuse superficial soft tissue edema. No abscess collection is seen. IMPRESSION: Relatively stable findings compatible with chronic osteomyelitis involving the mid shaft of the tibia and fibula with associated cellulitis and soft tissue edema. No new abscess. Signed by Van Low MD 09/27/2017 08:39 P
== END ==
LOC: M RAD 11:00
PROVIDERS: ATTEND Surgery
DX: I87.311 Chronic venous hypertension (idiopathic) with ulcer of right lower extremity (principal)
CPT/HCPCS: 73718; A9576

== ENCOUNTER 2017-10-11 13:36 | Day surgery (SDC) | payer OTHER ==
[2017-10-11] MEDS ORDERED: PROPOFOL 200 MG/20 ML VIAL As Ordered ×2 (13:40→13:41)
[2017-10-11] MEDS ORDERED: MIDAZOLAM INJ 2 MG/2 ML VIAL (J2250) As Ordered (13:40)
[2017-10-11] MEDS ORDERED: LIDOCAINE 2% INJ 100 MG/5 ML SDV (FOR ANES.) As Ordered (13:40)
[2017-10-11] MEDS ORDERED: fentaNYL 100 MCG/2 ML INJECTION (J3010) As Ordered (13:41)
[2017-10-11] MEDS: LR 1,000 ML IV (14:42)
[2017-10-11] MEDS ORDERED: PERCOCET 5MG/325MG TAB As Ordered (16:21)
[2017-10-11] MEDS ORDERED: METOCLOPRAMIDE INJ 10MG/2ML VIAL (J2765) IV (16:30)
[2017-10-11] MEDS: PERCOCET 5MG/325MG TAB PO ×2 (16:30→16:59)
[2017-10-11] MEDS ORDERED: ONDANSETRON 4MG/2ML VIAL (J2405) IV (16:30)
[2017-10-11] MEDS ORDERED: LR 1,000 ML IV (16:30)
[2017-10-11] MEDS ORDERED: fentaNYL 100 MCG/2 ML INJECTION (J3010) IV (16:30)
[2017-10-11] MEDS: GABAPENTIN 400 MG CAP PO (16:44)
== END 2017-10-11 17:05 | disposition home or self-care (01) ==
LOC: M OR 13:36 → M RR INP 16:00 → M OR 16:00 → M SDC 13:36
DX: L97.213 Non-pressure chronic ulcer of right calf with necrosis of muscle (principal); M86.8X7 Other osteomyelitis, ankle and foot; I89.0 Lymphedema, not elsewhere classified; I73.9 Peripheral vascular disease, unspecified; Z86.718 Personal history of other venous thrombosis and embolism; Z86.2 Personal history of diseases of the blood and blood-forming organs and certain disorders involving the immune mechanism; Z97.14 Presence of artificial left leg (complete) (partial); Z72.0 Tobacco use
CPT/HCPCS: 11043

== ENCOUNTER 2017-12-04 12:35 | Day surgery (SDC) | payer OTHER ==
[2017-12-04] MEDS ORDERED: PROPOFOL 200 MG/20 ML VIAL As Ordered ×2 (13:23→14:37)
[2017-12-04] MEDS ORDERED: LIDOCAINE 2% INJ 100 MG/5 ML SDV (FOR ANES.) As Ordered (13:24)
[2017-12-04] MEDS ORDERED: MIDAZOLAM INJ 2 MG/2 ML VIAL (J2250) As Ordered (13:27)
[2017-12-04] MEDS ORDERED: fentaNYL 100 MCG/2 ML INJECTION (J3010) As Ordered (13:28)
[2017-12-04] MEDS: LR 1,000 ML IV (13:40)
[2017-12-04] MEDS: HEPARIN SOD (PORCINE) 5000 UNITS/ML VIAL As Ordered (14:06)
[2017-12-04] MEDS ORDERED: SUCCINYLCHOLINE 100 MG/5 ML SYRINGE (J0330) As Ordered (14:40)
[2017-12-04] MEDS ORDERED: ROCURONIUM BROMIDE 50 MG/5 ML VIAL As Ordered (14:40)
[2017-12-04] MEDS ORDERED: ONDANSETRON 4MG/2ML VIAL (J2405) IV (15:45)
[2017-12-04] MEDS ORDERED: fentaNYL 100 MCG/2 ML INJECTION (J3010) IV (15:45)
[2017-12-04] MEDS ORDERED: LR 1,000 ML IV (15:45)
[2017-12-04] MEDS: PERCOCET 5MG/325MG TAB PO (16:41)
== END 2017-12-04 17:10 | disposition home or self-care (01) ==
LOC: M OR 12:36 → M SDC 12:35
DX: L97.914 Non-pressure chronic ulcer of unspecified part of right lower leg with necrosis of bone (principal); I87.311 Chronic venous hypertension (idiopathic) with ulcer of right lower extremity; I70.261 Atherosclerosis of native arteries of extremities with gangrene, right leg; F17.218 Nicotine dependence, cigarettes, with other nicotine-induced disorders; R23.3 Spontaneous ecchymoses; G62.9 Polyneuropathy, unspecified; Z79.899 Other long term (current) drug therapy; Z89.512 Acquired absence of left leg below knee; Z86.2 Personal history of diseases of the blood and blood-forming organs and certain disorders involving the immune mechanism; Z86.718 Personal history of other venous thrombosis and embolism; Z97.14 Presence of artificial left leg (complete) (partial)
CPT/HCPCS: 11043

== ENCOUNTER → 2017-12-31 | Outpatient (REF) | payer OTHER ==
[2017-12-31 12:21] LABS: BASO # 0.1 10^3/uL (0.0-0.2); BASO % 1.1 % (0.0-1.0); EOS # 0.2 10^3/uL (0.0-0.50); EOS % 2.6 % (0.0-3.0); HEMATOCRIT 35.3 % (42.0-52.0); HEMOGLOBIN 10.7 g/dl (14.0-18.0); IMMATURE GRANULOCYTE % 0.3 % (0-3.0); LYMPH # 1.9 10^3/uL (1.5-4.5); LYMPH % 21.3 % (24.0-44.0); MEAN CORPUSCULAR HEMOGLOBIN 20.8 pg (27.0-33.0); MEAN CORPUSCULAR HGB CONC 30.3 g/dl (32.0-36.5); MEAN CORPUSCULAR VOLUME 68.5 fl (80.0-96.0); MONO % 10.9 % (0.0-5.0); NEUTROPHILS # 5.8 10^3/uL (1.8-7.7); NEUTROPHILS % 63.8 % (36.0-66.0); PLATELET COUNT, AUTOMATED 297 10^3/uL (150-450); RED BLOOD COUNT 5.15 10^6/uL (4.30-6.10); RED CELL DISTRIBUTION WIDTH 17.5 % (11.5-14.5); WHITE BLOOD COUNT 9.1 10^3/uL (4.0-10.0)
[2017-12-31 12:50] LABS: ERYTHROCYTE SEDIMENTATION RATE 68 mm/hr (0-20)
[2017-12-31 12:55] LABS: FOLATE 6.1 NG/ML; VITAMIN B12 LEVEL 449 PG/ML
[2017-12-31 12:58] LABS: ALBUMIN 3.1 GM/DL (3.2-5.2); ALKALINE PHOSPHATASE 109 U/L (45-117); ALT/SGPT 15 U/L (12-78); ANION GAP 4 MEQ/L (8-16); AST/SGOT 9 U/L (7-37); BILIRUBIN,TOTAL 0.2 MG/DL (0.2-1.0); BLOOD UREA NITROGEN 9 MG/DL (7-18); CARBON DIOXIDE LEVEL 30 MEQ/L (21-32); CHLORIDE LEVEL 109 MEQ/L (98-107); CREATININE FOR GFR 0.97 MG/DL (0.70-1.30); GLOMERULAR FILTRATION RATE > 60.0 (>56); GLUCOSE, FASTING 72 MG/DL (70-100); IRON (FE) 20 UG/DL (65-175); PERCENT SATURATION 5.1 % (19.7-50.0); POTASSIUM SERUM 4.8 MEQ/L (3.5-5.1); SODIUM LEVEL 143 MEQ/L (136-145); TOTAL IRON BINDING CAPACITY 394 UG/DL (250-450); TOTAL PROTEIN 7.5 GM/DL (6.4-8.2)
== END ==
LOC: M SFHCPLAZ 11:10
DX: M86.361 Chronic multifocal osteomyelitis, right tibia and fibula (principal); D50.9 Iron deficiency anemia, unspecified; E53.8 Deficiency of other specified B group vitamins
CPT/HCPCS: 82746

== ENCOUNTER → 2018-01-09 | Outpatient (CLI) | payer OTHER | LOC: M PAIN 08:30 | DX: M79.604 Pain in right leg (principal); G89.21 Chronic pain due to trauma; I87.311 Chronic venous hypertension (idiopathic) with ulcer of right lower extremity; M86.361 Chronic multifocal osteomyelitis, right tibia and fibula; D64.9 Anemia, unspecified; F17.210 Nicotine dependence, cigarettes, uncomplicated; Z79.891 Long term (current) use of opiate analgesic; Z79.899 Other long term (current) drug therapy; Z89.512 Acquired absence of left leg below knee | CPT/HCPCS: G0463 ==

== ENCOUNTER → 2018-02-08 | Outpatient (CLI) | payer OTHER | LOC: M PAIN 08:30 | DX: M79.604 Pain in right leg (principal); G89.21 Chronic pain due to trauma; L97.814 Non-pressure chronic ulcer of other part of right lower leg with necrosis of bone; F17.210 Nicotine dependence, cigarettes, uncomplicated; Z79.891 Long term (current) use of opiate analgesic; Z79.899 Other long term (current) drug therapy | CPT/HCPCS: G0463 ==

== ENCOUNTER → 2018-04-12 | Outpatient (CLI) | payer OTHER | LOC: M PAIN 08:30 | DX: L97.814 Non-pressure chronic ulcer of other part of right lower leg with necrosis of bone (principal); G89.21 Chronic pain due to trauma; F17.210 Nicotine dependence, cigarettes, uncomplicated; Z79.899 Other long term (current) drug therapy; Z79.891 Long term (current) use of opiate analgesic; Z89.512 Acquired absence of left leg below knee | CPT/HCPCS: G0463 ==

== ENCOUNTER → 2018-05-23 | Outpatient (CLI) | payer OTHER | LOC: M PAIN 09:30 | DX: G89.21 Chronic pain due to trauma (principal); L97.814 Non-pressure chronic ulcer of other part of right lower leg with necrosis of bone; D64.9 Anemia, unspecified; F17.210 Nicotine dependence, cigarettes, uncomplicated; M86.661 Other chronic osteomyelitis, right tibia and fibula; Z79.891 Long term (current) use of opiate analgesic; Z89.512 Acquired absence of left leg below knee; Z79.899 Other long term (current) drug therapy | CPT/HCPCS: G0463 ==

== ENCOUNTER → 2018-06-20 | Outpatient (REF) | payer OTHER ==
[2018-06-20 17:48] LABS: ALBUMIN 2.7 GM/DL (3.2-5.2); ALBUMIN/GLOBULIN RATIO 0.68 (1.00-1.93); ALKALINE PHOSPHATASE 91 U/L (45-117); ALT/SGPT 14 U/L (12-78); ANION GAP 3 MEQ/L (8-16); AST/SGOT 7 U/L (7-37); BILIRUBIN,TOTAL 0.2 MG/DL (0.2-1.0); BLOOD UREA NITROGEN 11 MG/DL (7-18); C REACTIVE PROTEIN QUANTITATIV 2.71 MG/DL (0.00-0.30); CALCIUM LEVEL 8.2 MG/DL (8.5-10.1); CARBON DIOXIDE LEVEL 30 MEQ/L (21-32); CHLORIDE LEVEL 108 MEQ/L (98-107); CHOLESTEROL LEVEL 129 MG/DL (<200); CHOLESTEROL RISK RATIO 4.607 (<5); CREATININE FOR GFR 0.93 MG/DL (0.70-1.30); GLOMERULAR FILTRATION RATE > 60.0 (>56); GLUCOSE, FASTING 105 MG/DL (70-100); HDL CHOLESTEROL 28 MG/DL (>40); IRON (FE) 27 UG/DL (65-175); LDL CHOLESTEROL 82 MG/DL (<100); NON-HDL-C 101 MG/DL; POTASSIUM SERUM 4.5 MEQ/L (3.5-5.1); SODIUM LEVEL 141 MEQ/L (136-145); TOTAL IRON BINDING CAPACITY 338 UG/DL (250-450); TOTAL PROTEIN 6.7 GM/DL (6.4-8.2); TRIGLYCERIDES LEVEL 97 MG/DL (<150)
[2018-06-20 17:49] LABS: FOLATE 6.4 NG/ML
[2018-06-20 19:51] LABS: BASO # 0.1 10^3/uL (0.0-0.2); BASO % 1.1 % (0.0-1.0); EOS # 0.2 10^3/uL (0.0-0.50); EOS % 3.6 % (0.0-3.0); HEMATOCRIT 36.6 % (42.0-52.0); IMMATURE GRANULOCYTE % 0.6 % (0-3.0); LYMPH # 1.2 10^3/uL (1.5-4.5); LYMPH % 19.4 % (24.0-44.0); MEAN CORPUSCULAR HEMOGLOBIN 22.5 pg (27.0-33.0); MEAN CORPUSCULAR HGB CONC 30.1 g/dl (32.0-36.5); MEAN CORPUSCULAR VOLUME 74.8 fl (80.0-96.0); MONO # 0.7 10^3/uL (0.0-0.8); MONO % 10.3 % (0.0-5.0); NEUTROPHILS # 4.1 10^3/uL (1.8-7.7); PLATELET COUNT, AUTOMATED 203 10^3/uL (150-450); RED BLOOD COUNT 4.89 10^6/uL (4.30-6.10); RED CELL DISTRIBUTION WIDTH 19.7 % (11.5-14.5); WHITE BLOOD COUNT 6.3 10^3/uL (4.0-10.0)
[2018-06-20 20:55] LABS: ERYTHROCYTE SEDIMENTATION RATE 49 mm/hr (0-20)
== END ==
LOC: M SFHCCLAY 10:01
DX: Z12.5 Encounter for screening for malignant neoplasm of prostate (principal); D50.9 Iron deficiency anemia, unspecified; E53.8 Deficiency of other specified B group vitamins; M86.361 Chronic multifocal osteomyelitis, right tibia and fibula; I87.311 Chronic venous hypertension (idiopathic) with ulcer of right lower extremity
CPT/HCPCS: 82746

== ENCOUNTER → 2018-07-22 | Outpatient (CLI) | payer OTHER | LOC: M PAIN 09:15 | DX: G89.21 Chronic pain due to trauma (principal); L97.814 Non-pressure chronic ulcer of other part of right lower leg with necrosis of bone; F17.200 Nicotine dependence, unspecified, uncomplicated; Z79.899 Other long term (current) drug therapy; Z86.2 Personal history of diseases of the blood and blood-forming organs and certain disorders involving the immune mechanism; Z89.512 Acquired absence of left leg below knee | CPT/HCPCS: G0463 ==

== ENCOUNTER → 2019-03-21 | Outpatient (REF) | payer OTHER ==
[~2019-03-21] MED LIST changes: +FOLI1TAB11 PO; -FOLI1TAB4 PO; -GABA-282 PO; -GABA-283 PO; +GABA-843 PO; +GABA-845 PO; +GABA800T4 PO; +HYDR-3716 PO; -PROHANCE 279.3MG/ML 15ML VIAL (A9576) As Ordered ONE; -PROHANCE 279.3MG/ML 5ML VIAL (A9576) As Ordered ONE; -ROCE1INJ4 IV; +ROCE1INJ6 IV
[2019-03-21 12:56] LABS: HEMATOCRIT 40.9 % (42.0-52.0); HEMOGLOBIN 12.6 g/dl (13.5-17.5); MEAN CORPUSCULAR HGB CONC 30.8 g/dl (32.0-36.5); MEAN CORPUSCULAR VOLUME 81.2 fl (80.0-96.0); PLATELET COUNT, AUTOMATED 229 10^3/uL (150-450); RED BLOOD COUNT 5.04 10^6/uL (4.30-6.10); WHITE BLOOD COUNT 6.3 10^3/uL (4.0-10.0)
[2019-03-21 13:19] LABS: BLOOD UREA NITROGEN 11 MG/DL (7-18); CALCIUM LEVEL 8.5 MG/DL (8.5-10.1); CARBON DIOXIDE LEVEL 30 MEQ/L (21-32); CHLORIDE LEVEL 106 MEQ/L (98-107); CREATININE FOR GFR 0.97 MG/DL (0.70-1.30); GLOMERULAR FILTRATION RATE > 60.0 (>56); GLUCOSE, FASTING 86 MG/DL (70-100); POTASSIUM SERUM 5.2 MEQ/L (3.5-5.1); SODIUM LEVEL 140 MEQ/L (136-145)
== END ==
LOC: M SFHCWOUN 09:21
PROVIDERS: ATTEND Surgery
DX: I87.311 Chronic venous hypertension (idiopathic) with ulcer of right lower extremity (principal)

== ENCOUNTER → 2019-03-26 | Outpatient (CLI) | payer OTHER ==
[~2019-03-26] MED LIST changes: +ISOVUE-370 76% 100ML VIAL (Q9967) As Ordered ONE
== END ==
LOC: M RAD 14:43
PROVIDERS: ATTEND Surgery
DX: Z53.9 Procedure and treatment not carried out, unspecified reason (principal); I87.311 Chronic venous hypertension (idiopathic) with ulcer of right lower extremity

== ENCOUNTER → 2019-04-22 | Outpatient (REF) | payer OTHER ==
[~2019-04-22] MED LIST changes: -ISOVUE-370 76% 100ML VIAL (Q9967) As Ordered ONE
[2019-04-22 16:49] LABS: BASO # 0.1 10^3/uL (0.0-0.2); BASO % 1.2 % (0.0-1.0); EOS # 0.2 10^3/uL (0.0-0.50); HEMATOCRIT 40.1 % (42.0-52.0); HEMOGLOBIN 12.6 g/dl (13.5-17.5); LYMPH # 1.2 10^3/uL (1.5-4.5); LYMPH % 20.1 % (24.0-44.0); MEAN CORPUSCULAR HEMOGLOBIN 24.6 pg (27.0-33.0); MEAN CORPUSCULAR HGB CONC 31.4 g/dl (32.0-36.5); MEAN CORPUSCULAR VOLUME 78.2 fl (80.0-96.0); MONO # 0.5 10^3/uL (0.0-0.8); MONO % 8.6 % (0.0-5.0); NEUTROPHILS # 4.1 10^3/uL (1.8-7.7); NEUTROPHILS % 66.8 % (36.0-66.0); PLATELET COUNT, AUTOMATED 220 10^3/uL (150-450); RED BLOOD COUNT 5.13 10^6/uL (4.30-6.10); WHITE BLOOD COUNT 6.1 10^3/uL (4.0-10.0)
[2019-04-22 17:19] LABS: BLOOD UREA NITROGEN 13 MG/DL (7-18); CALCIUM LEVEL 8.4 MG/DL (8.5-10.1); CARBON DIOXIDE LEVEL 27 MEQ/L (21-32); CHLORIDE LEVEL 108 MEQ/L (98-107); CREATININE FOR GFR 0.95 MG/DL (0.70-1.30); GLOMERULAR FILTRATION RATE > 60.0 (>56); GLUCOSE, FASTING 84 MG/DL (70-100); IRON (FE) 25 UG/DL (65-175); PERCENT SATURATION 8.3 % (19.7-50.0); POTASSIUM SERUM 4.4 MEQ/L (3.5-5.1); SODIUM LEVEL 141 MEQ/L (136-145); TOTAL IRON BINDING CAPACITY 303 UG/DL (250-450)
== END ==
LOC: M LAB REF 16:19
PROVIDERS: ATTEND Physician Assistant
DX: I87.311 Chronic venous hypertension (idiopathic) with ulcer of right lower extremity (principal)

== ENCOUNTER → 2019-12-31 | Outpatient (REF) | payer OTHER | LOC: M LAB REF 12:20 | PROVIDERS: ATTEND Physician Assistant | DX: I87.311 Chronic venous hypertension (idiopathic) with ulcer of right lower extremity (principal); L97.812 Non-pressure chronic ulcer of other part of right lower leg with fat layer exposed ==

== ENCOUNTER 2020-12-29 18:32 | Inpatient (IN) | payer OTHER ==
[~2020-12-29] VITALS: Ht 185.4 cm; Wt 114.8 kg
[~2020-12-29 18:32] MED LIST changes: +GABA-282 PO; -GABA-843 PO
[2020-12-29] MEDS ORDERED: PIPERACILLIN/TAZOBACTAM SOD 3.375 GM in D5W MINI-BAG PLUS 50 ML IV ONE (19:25)
[2020-12-29] MEDS ORDERED: ONDANSETRON 4MG/2ML VIAL IV ONE (19:25)
[2020-12-29 19:38] LABS: BASO # 0.1 10^3/uL (0.0-0.2); BASO % 1.1 % (0.0-1.0); EOS # 0.2 10^3/uL (0.0-0.5); EOS % 3.1 % (0.0-3.0); HEMATOCRIT 39.8 % (42.0-52.0); HEMOGLOBIN 12.9 g/dl (13.5-17.5); LYMPH # 1.4 10^3/uL (1.5-5.0); LYMPH % 19.2 % (24.0-44.0); MEAN CORPUSCULAR HEMOGLOBIN 27.1 pg (27.0-33.0); MEAN CORPUSCULAR HGB CONC 32.4 g/dl (32.0-36.5); MEAN CORPUSCULAR VOLUME 83.6 fl (80.0-96.0); MONO # 0.8 10^3/uL (0.0-0.8); MONO % 10.9 % (2.0-8.0); NEUTROPHILS # 4.8 10^3/uL (1.5-8.5); NEUTROPHILS % 65.2 % (36.0-66.0); PLATELET COUNT, AUTOMATED 189 10^3/uL (150-450); RED BLOOD COUNT 4.76 10^6/uL (4.30-6.10); WHITE BLOOD COUNT 7.4 10^3/uL (4.0-10.0)
[2020-12-29] MEDS ORDERED: MOM 30ML SUSPENSION UDC PO PRN (19:50)
[2020-12-29] MEDS ORDERED: ACETAMINOPHEN TAB 650MG DOSE (2X325MG) PO PRN (19:50)
[2020-12-29] MEDS ORDERED: MAALOX 30 ML SUSP *UDC PO PRN (19:50)
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
[2020-12-29 19:57] LABS: BLOOD UREA NITROGEN 11 MG/DL (7-18); C REACTIVE PROTEIN QUANTITATIV 7.88 MG/DL (0.00-0.30); CARBON DIOXIDE LEVEL 29 MEQ/L (21-32); CHLORIDE LEVEL 103 MEQ/L (98-107); GLOMERULAR FILTRATION RATE > 60.0 (>49); GLUCOSE, FASTING 92 MG/DL (70-100); POTASSIUM SERUM 3.9 MEQ/L (3.5-5.1); SODIUM LEVEL 136 MEQ/L (136-145)
[2020-12-29] MEDS: MORPHINE 4 MG/ML 1ML VIAL/SYRINGE (J2270) IV PRN ×2 (20:02→21:29)
[2020-12-29 20:18] LABS: FERRITIN 65 NG/ML (26-388); IRON (FE) 23 UG/DL (65-175); PERCENT SATURATION 7.9 % (19.7-50.0); TOTAL IRON BINDING CAPACITY 292 UG/DL (250-450)
[2020-12-29 20:21] LABS: ERYTHROCYTE SEDIMENTATION RATE 17 mm/hr (0-20)
[2020-12-29 20:25] LABS: FOLATE 7.8 NG/ML (>5.4); VITAMIN B12 LEVEL 409 PG/ML (247-911)
[2020-12-29 20:26] LABS: HEMOGLOBIN A1c 5.9 %
[2020-12-29] MEDS ORDERED: VANCOMYCIN HCL 1,000 MG, VIAL MATE ADAPTER 1 EACH in NS 250 ML IV ONE (20:35)
[2020-12-29 20:49] LABS: RSV AMPLIFICATION NEGATIVE (NEGATIVE)
--- NOTE | 2020-12-29 20:58 | REPVR ---
PROCEDURE INFORMATION: Exam: XR Right Foot Exam date and time: 12/29/2020 8:02 PM Age: 60 years old Clinical indication: Pain; Foot; Right; Additional info: Open wound on foot, eval for osteo TECHNIQUE: Imaging protocol: XR Right foot. Views: 3 or more views. COMPARISON: No relevant prior studies available. FINDINGS: Bones/joints: No acute fracture or dislocation. No bone erosion. There is spurring of the dorsum of the foot and a large plantar and smaller dorsal calcaneal spur. Abnormal calcification is seen along the tibia and fibula not well assessed. Degeneration is seen at the ankle joint. Soft tissues: Edema is seen throughout the soft tissues. IMPRESSION: No definite x-ray evidence of osteomyelitis. Consider MRI. Electronically signed by: Maday Andrade On 12/29/2020 20:57:54 PM
[2020-12-29] MEDS: LR 1,000 ML IV SCH (21:27)
[2020-12-29 22:30] VITALS: BP 135/66
[2020-12-30] MEDS: VANCOMYCIN HCL 1,000 MG, VIAL MATE ADAPTER 1 EACH in NS 250 ML IV SCH ×2 (00:19→09:20)
[2020-12-30] MEDS: MORPHINE 2 MG/ML 1ML VIAL (J2270) IV PRN ×5 (00:20→20:52)
[2020-12-30] MEDS: ceFAZolin SOD 1 GM in D5W MINI-BAG PLUS 50 ML IV SCH ×3 (02:40→23:04)
[2020-12-30 06:00] VITALS: BP 124/67
[2020-12-30 06:36] LABS: HEMATOCRIT 37.2 % (42.0-52.0); HEMOGLOBIN 11.8 g/dl (13.5-17.5); MEAN CORPUSCULAR HEMOGLOBIN 26.8 pg (27.0-33.0); MEAN CORPUSCULAR HGB CONC 31.7 g/dl (32.0-36.5); MEAN CORPUSCULAR VOLUME 84.4 fl (80.0-96.0); PLATELET COUNT, AUTOMATED 154 10^3/uL (150-450); RED BLOOD COUNT 4.41 10^6/uL (4.30-6.10); WHITE BLOOD COUNT 5.4 10^3/uL (4.0-10.0)
[2020-12-30 06:37] LABS: INR 1.11; PROTHROMBIN TIME 14.6 SECONDS (12.5-14.3)
[2020-12-30 06:48] LABS: BLOOD UREA NITROGEN 10 MG/DL (7-18); CALCIUM LEVEL 8.2 MG/DL (8.8-10.2); CARBON DIOXIDE LEVEL 28 MEQ/L (21-32); CHLORIDE LEVEL 105 MEQ/L (98-107); CREATININE FOR GFR 0.96 MG/DL (0.70-1.30); GLOMERULAR FILTRATION RATE > 60.0 (>49); GLUCOSE, FASTING 124 MG/DL (70-100); MAGNESIUM LEVEL 2.2 MG/DL (1.8-2.4); POTASSIUM SERUM 3.9 MEQ/L (3.5-5.1); SODIUM LEVEL 137 MEQ/L (136-145)
[2020-12-30] MEDS ORDERED: PROHANCE 279.3MG/ML 5ML VIAL As Ordered ONE (11:56)
[2020-12-30] MEDS ORDERED: PROHANCE 279.3MG/ML 15ML VIAL As Ordered ONE (11:57)
--- NOTE | 2020-12-30 13:14 | REP ---
INDICATION: R/O osteo of the right 2nd toe. COMPARISON: Radiographs 12/29/2020. TECHNIQUE: Multiple sequences obtained in the axial, coronal and sagittal planes prior to and following the intravenous administration of 20 mL ProHance. FINDINGS: The 2nd distal phalanx demonstrates marrow edema and there is mild enhancement compatible with osteomyelitis. There is no other evidence for osteomyelitis in the right foot. There are degenerative changes at the 2nd through 4th tarsal/metatarsal joints with associated subchondral marrow edema. Diffuse superficial soft tissue edema is seen predominantly at the dorsum of the foot. There is diffuse soft tissue enhancement compatible with cellulitis. No abscess is seen. Flexor and extensor tendons demonstrate no significant tenosynovitis. The plantar forefoot there is a subcutaneous lipoma which has a maximum diameter of 2.3 cm. This extends between the flexor tendons of the 2nd and 3rd toes the level of the metatarsals. IMPRESSION: Findings compatible with osteomyelitis of the 2nd distal phalanx. Diffuse cellulitis. No abscess. <Electronically signed by Van Low > 12/30/20 [id number]
[2020-12-30 14:00] VITALS: BP 129/76
--- NOTE | 2020-12-30 14:02 | IPNPDOC ---
Date Seen The patient was seen on 12/30/20. Progress Note SUBJECTIVE: Patient was seen and examined this morning. No adverse events reported overnight. Patient states that he has pain in his right 2nd toe. He denies any fevers, chills, chest pain or shortness of breath OBJECTIVE PHYSICAL EXAMINATION: VITAL SIGNS: Please see below. GENERAL: Awake, alert, and oriented. Lying in bed comfortably. Appears in no acute distress HEENT: Atraumatic, normocephalic. Eyes are nonicteric. Trachea is midline. Mucous membranes are pink and moist CARDIOVASCULAR: Normal S1, S2. Regular rate and rhythm. No clicks, rubs, or murmurs. RESPIRATORY: Clear breath sounds bilaterally. Slightly diminished in the bases bilaterally. No wheezes, rhonchi or rales ABDOMINAL: Obese. Soft, nondistended. Nontender. Normoactive bowel sounds. EXTREMITIES: Left leg below the knee amputation. Right leg with multiple venous stasis ulcers. Right bloom ulcer appear clean. Right foot with area of ulceration of the 2nd toe. No clearly visible exposed bone. No drainage or pradeep pus. There is edema of the toes and foot. Onychomycosis is present. Full and equal pulses in bilateral upper and lower extremities NEUROLOGICAL: Mood and affect appear appropriate PSYCHOLOGICAL: Mood and affect appear appropriate LABORATORY DATA, IMAGING STUDIES, MICROBIOLOGY: Please see below. 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 PROBLEMS: 1. Osteomyelitis of 2nd great toe -Patient is followed by Dr. Hernandez outpatient for management of his chronic right lower extremity ulcers. His outpatient records were reviewed and it appears he was healing well however developed worsening of his right second toe. He has recieved arterial studies which have been normal. He is not diabetic. His cause of ulceration is likely venous stasis. -X-ray on presentation was negative for osteomyelitis. Will proceed with MRI of the foot as on examination his wound appears close to exposed bone -Podiatry has been consulted. -MRI resulted with likely osteomyelitis. Will continue Ancef and Vancomycin for now. Pending MRSA screen. If patient is not improving then could broaden coverage to Rocephin as Ancef does not have good gram negative coverage -CRP elevated. Will trend. -Blood cultures taken. No current drainage to culture. Will need cultures in OR 2. Chronic Venous Stasis ulcers -As described in PE, patient has history of chronic venous stasis ulcers of the right leg and foot. He has had arterial studies which were normal. He is not diabetic. He is followed by Dr. Hernandez of wound care outpatient. -Will consult advanced wound care for management of chronic venous stasis ulcers 3. DVT Prophylaxis -Heparin SQ DISPOSITION: Pending clinical improvement. If patient gets right toe amputation then anticipate discharge in 3-4 days. If he does not get amputation then will need PICC line placement and long course of antibiotics VS, I&O, 24H, Fishbone Vital Signs/I&O Vital Signs Date Time Temp Pulse Resp B/P (MAP) Pulse Ox O2 Delivery O2 Flow Rate FiO2 12/30/20 13:04 16 12/30/20 06:22 Room Air 12/30/20 06:00 97.6 82 124/67 (86) 96 I&O- Last 24 Hours up to 6 AM 12/30/20 05:59 Intake Total 870 ml Output Total 575 ml Balance 295 ml Laboratory Data 24H LABS Laboratory Tests 2 12/29/20 19:07: Immature Granulocyte % (Auto) 0.5, Neutrophils (%) (Auto) 65.2, Lymphocytes (%) (Auto) 19.2L, Monocytes (%) (Auto) 10.9H, Eosinophils (%) (Auto) 3.1H, Basophils (%) (Auto) 1.1H, Neutrophils # (Auto) 4.8, Lymphocytes # (Auto) 1.4L, Monocytes # (Auto) 0.8, Eosinophils # (Auto) 0.2, Basophils # (Auto) 0.1, Nucleated Red Blood Cells % (auto) 0.0, Erythrocyte Sedimentation Rate 17, Anion Gap 4L, Glomerular Filtration Rate > 60.0, Estimated Mean Plasma Glucose 123H, Hemoglobin A1c 5.9, Calcium Level 8.0L, Iron Level 23L, Total Iron Binding Capacity 292, Transferrin % Saturation 7.9L, Ferritin 65, C-Reactive Protein, Quantitative 7.88H, Vitamin B12 Level 409, Folate 7.8 12/29/20 20:04: Coronavirus (COVID-19)(PCR) NEGATIVE, Influenza Type A (RT-PCR) NEGATIVE, Influenza Type B (RT-PCR) NEGATIVE, Respiratory Syncytial Virus (PCR) NEGATIVE 12/30/20 06:00: Nucleated Red Blood Cells % (auto) 0.0, Anion Gap 4L, Glomerular Filtration Rate > 60.0, Calcium Level 8.2L, Prothrombin Time 14.6H, Prothromb Time International Ratio 1.11, Magnesium Level 2.2 12/30/20 06:12: Methicillin-Resist S.aureus DNA PCR NOT DETECTED CBC/BMP Laboratory Tests 12/29/20 19:07 12/30/20 06:00 Microbiology Microbiology 12/29/20 Blood Culture, Received Pending 12/29/20 Blood Culture, Received Pending GME ATTESTATION GME ATTESTATION My faculty preceptor for this patient encounter was physically present during the encounter and was fully available. All aspects of the patient interview, examination, medical decision making process, and medical care plan development were reviewed and approved by the faculty preceptor. The faculty preceptor is aware and concurs with the plan as stated in the body of this note and will attest to such by his/her cosignature. ATTENDING NOTE I, Sandor Taylor MD, have independently examined this patient and performed my own physical exam, as well as reviewed the documentation and edited where necessary. I have discussed in detail with the resident / student the findings and plan of treatment as documented by the resident / student and edited their note. I agree with their findings and treatment plan and have edited their documentation. TANGELA LAMB DO Dec 30, 2020 14:02 SANDOR TAYLOR MD Jan 05, 2021 15:08
[2020-12-30] MEDS: LR 1,000 ML IV SCH ×2 (15:42→15:50)
[2020-12-30] MEDS: HEPARIN SOD (PORCINE) 5000UNITS/ML 1ML VIAL/SYRINGE SQ SCH (15:43)
[2020-12-30] MEDS ORDERED: VANCOMYCIN HCL 750 MG, VIAL MATE ADAPTER 1 EACH in NS 250 ML IV SCH ×2 (17:00→18:00)
[2020-12-30 22:00] VITALS: BP_SYST 146; BP_DIAS 0; BP_DIAS 70
[2020-12-31] VITALS (8 sets, daily range): BP systolic 112–145; BP diastolic 73–85
[2020-12-31] MEDS: ceFAZolin SOD 1 GM in D5W MINI-BAG PLUS 50 ML IV SCH ×3 (03:34→18:57)
[2020-12-31] MEDS: LR 1,000 ML IV SCH ×2 (05:35→11:50)
[2020-12-31] MEDS: MORPHINE 2 MG/ML 1ML VIAL (J2270) IV PRN ×2 (05:36→20:48)
[2020-12-31 08:19] LABS: HEMATOCRIT 35.5 % (42.0-52.0); HEMOGLOBIN 11.6 g/dl (13.5-17.5); MEAN CORPUSCULAR HEMOGLOBIN 27.4 pg (27.0-33.0); MEAN CORPUSCULAR HGB CONC 32.7 g/dl (32.0-36.5); MEAN CORPUSCULAR VOLUME 83.7 fl (80.0-96.0); PLATELET COUNT, AUTOMATED 151 10^3/uL (150-450); RED BLOOD COUNT 4.24 10^6/uL (4.30-6.10); WHITE BLOOD COUNT 4.4 10^3/uL (4.0-10.0)
--- NOTE | 2020-12-31 08:48 | IPNPDOC ---
Text Note Date of Service The patient was seen on 12/31/20. NOTE Subjective: No acute events overnight. Pt complains of pain but states that it is not any worse than it was previously. No increase in swelling, erythema, or pain reported by pt. Pt denies any headache, nausea, vomiting, chest pain, SOB, abd pain, diarrhea, or constipation. Pt states he did speak to Dr. Bundy about plans for amputation and is aware and agrees with plan for amputation today. Objective: VITALS: See below. GENERAL: Pt is laying down in bed comfortably. He is awake, alert and oriented. No acute distress. HEENT: NC/AT. Lids and conjunctiva nl. No scleral icterus. Trachea midline. CARDIOVASCULAR: Regular rate and rhythm. Nl S1/S2. I/ systolic murmur noticed. No clicks or rubs. RESPIRATORY: Clear breath sounds bilaterally with good air movement. No wheezes, rales, or rhonchi appreciated. ABDOMINAL: Obese. Soft and non tender to palpation. No distention. No rebound or guarding. Normoactive bowel sounds in all four quadrants. EXTREMITIES: L BKA. R leg with multiple venous stasis ulcers. R foot with ulceration to 2nd toe with surrounding black discoloration, no clear visible exposed bone. No drainage or pradeep pus. Edema to R foot. Onychomycosis present. NEUROLOGICAL: No gross neurological deficits appreciated. 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 Pt was admitted for possible osteomyelitis of R 2nd toe and R foot cellulitis. #Osteomyelitis of R 2nd toe. - MRI resulted with likely osteomyelitis. Pt currently receiving Vancomycin and Cefazolin for coverage but will discontinue Vancomycin. MRSA PCR negative. - CRP was elevated at 7.88 yesterday. Will continue to trend. - WBC count WNL at 4.4. - Blood cultures pending. - There is no drainage to culture so will likely need cultures in OR. - Dr. Bundy, health insurance agent, consulted and has discussed amputation with pt. Pt is aware and agrees with plan for scheduled amputation of R 2nd toe today. Pt hepa rin has been held and pt has been NPO. #Chronic venous stasis ulcers - Pt has hx of chronic venous stasis ulcers of the R leg and foot. Past arterial studies have been normal. - He follows up with Dr. Hernandez, wound care, out patient regarding these ulcers. - Will have pt continue to follow up with Dr. Hernandez after discharge. - Advanced wound care consulted for further management. DVT Prophylaxis: Heparin 5,000 units SC q8h - held due to scheduled amputation of R 2nd toe today. Disposition: Pending clinical improvement and surgical intervention. Pt states that he does not want to go to rehab after amputation. VS,Fishbone, I+O VS, Fishbone, I+O Laboratory Tests 12/31/20 07:38 Vital Signs Date Time Temp Pulse Resp B/P (MAP) Pulse Ox O2 Delivery O2 Flow Rate FiO2 12/31/20 06:00 97.8 74 20 133/74 (93) 94 12/31/20 05:46 Room Air I&O- Last 24 Hours up to 6 AM 12/31/20 06:00 Intake Total 3800 ml Output Total 2250 ml Balance 1550 ml GME ATTESTATION GME ATTESTATION My faculty preceptor for this patient encounter was physically present during the encounter and was fully available. All aspects of the patient interview, examination, medical decision making process, and medical care plan development were reviewed and approved by the faculty preceptor. The faculty preceptor is aware and concurs with the plan as stated in the body of this note and will attest to such by his/her cosignature. ATTENDING NOTE I, Sandor Taylor MD, have independently examined this patient and performed my own physical exam, as well as reviewed the documentation and edited where ne cessary. I have discussed in detail with the resident / student the findings and plan of treatment as documented by the resident / student and edited their note. I agree with their findings and treatment plan and have edited their documentation. Claudia RAMESH OMS-3 Dec 31, 2020 08:48 ITZEL SERRANO D.O. Dec 31, 2020 14:48 SANDOR TAYLOR MD Jan 05, 2021 15:17
[2020-12-31 08:49] LABS: BLOOD UREA NITROGEN 11 MG/DL (7-18); CALCIUM LEVEL 7.8 MG/DL (8.8-10.2); CARBON DIOXIDE LEVEL 26 MEQ/L (21-32); CHLORIDE LEVEL 108 MEQ/L (98-107); CREATININE FOR GFR 0.85 MG/DL (0.70-1.30); GLOMERULAR FILTRATION RATE > 60.0 (>49); GLUCOSE, FASTING 119 MG/DL (70-100); POTASSIUM SERUM 3.8 MEQ/L (3.5-5.1); SODIUM LEVEL 140 MEQ/L (136-145)
[2020-12-31] MEDS ORDERED: VANCOMYCIN HCL 750 MG, VIAL MATE ADAPTER 1 EACH in NS 250 ML IV SCH ×2 (09:00→10:00)
--- NOTE | 2020-12-31 13:18 | CR ---
CONSULTATION DATE: 12/30/2020 REASON FOR CONSULTATION: Right 2nd toe ulceration and infection. HISTORY OF PRESENT ILLNESS: John Rowe is a pleasant 60-year-old male who was admitted due to worsening condition of his right 2nd toe. He is a longstanding patient of Dr. Hernandez of the wound care center. He has been having recent debridement of his right 2nd toe. He had worsening pain and redness to the foot and was admitted for the same. MEDICAL HISTORY: Significant for: 1. Obesity. 2. History of left below-knee amputation due to trauma. 3. Chronic right leg ulcerations. SURGICAL HISTORY: Left below-knee amputation. ALLERGIES: No known drug allergies. REVIEW OF SYSTEMS: Negative for nausea, vomiting, fever, or chills. Vital signs are reviewed. He has been afebrile. Labs are reviewed. White blood cell count is 5.4. ESR 17. Hemoglobin A1c is 5.9. LOWER EXTREMITY EXAMINATION: Left below-knee amputation present. Right foot has chronic signs of lymphedema. The 2nd toe is markedly swollen, approximately twice the size of the other toes. There is an ulceration at the distal aspect of the toe with local erythema and some necrotic tissue. X-rays were taken, which were negative for osteomyelitis. MRI was taken of the right foot, which showed signs consistent with osteomyelitis of the distal phalanx of the right 2nd toe. ASSESSMENT: A 60-year-old male with right 2nd toe ulceration, likely osteomyelitis. Treatment options discussed with patient. Patient states he wishes for the toe to be amputated. He has had chronic pain with this toe even prior to the ulceration. He states it limits his ability to wear shoe gear and causes much discomfort when he is standing and walking. It was discussed with patient that he could potentially heal a partial debridement or amputation of the toe, but he prefers that the toe just be removed in total given his chromic pain. The toe has chronic lymphedema, which will never resolve. It is not a functional toe. It does not move or clutch assembler the ground or improve his ground purchase, so removal of the toe would not cause any ill effect to his weightbearing. We will plan to proceed with amputation of the toe tomorrow. He is to be nothing by mouth after breakfast.
[2020-12-31] MEDS ORDERED: LIDOCAINE 1% MDV 20ML VIAL As Ordered ONE (16:31)
[2020-12-31] MEDS ORDERED: BUPIVACAINE HCL 0.5% 10ML VIAL As Ordered ONE (16:31)
[2020-12-31] MEDS ORDERED: dexameTHASONE 4 MG/ML 1ML VIAL (J1100 PER 1MG) As Ordered ONE (16:55)
[2020-12-31] MEDS ORDERED: MIDAZOLAM INJ 2MG/2ML VIAL (J2250 PER 1MG) As Ordered ONE (16:55)
[2020-12-31] MEDS ORDERED: ONDANSETRON 4MG/2ML VIAL As Ordered ONE (16:55)
[2020-12-31] MEDS ORDERED: propofoL 200 MG/20 ML VIAL As Ordered ONE (16:55)
[2020-12-31] MEDS ORDERED: LIDOCAINE 2% 100MG/5ML SDV (FOR ANES.) As Ordered ONE (16:55)
[2020-12-31] MEDS ORDERED: fentaNYL 100 MCG/2 ML INJECTION (J3010) As Ordered ONE (16:55)
[2020-12-31] MEDS ORDERED: LR 1,000 ML IV SCH (17:40)
[2020-12-31] MEDS ORDERED: fentaNYL 100 MCG/2 ML INJECTION (J3010) IV PRN (17:40)
[2020-12-31] MEDS ORDERED: PERCOCET 5MG/325MG TAB PO PRN (17:40)
[2020-12-31] MEDS ORDERED: METOCLOPRAMIDE INJ 10MG/2ML VIAL (J2765 PER 1) IV PRN (17:40)
[2020-12-31] MEDS ORDERED: ONDANSETRON 4MG/2ML VIAL IV PRN (17:40)
[2021-01-01] MEDS: MORPHINE 2 MG/ML 1ML VIAL (J2270) IV PRN ×4 (00:07→09:59)
[2021-01-01] MEDS: ceFAZolin SOD 1 GM in D5W MINI-BAG PLUS 50 ML IV SCH ×2 (02:00→10:00)
[2021-01-01 03:00] VITALS: BP 124/74
[2021-01-01 06:00] VITALS: BP 125/75
[2021-01-01] MEDS: HEPARIN SOD (PORCINE) 5000UNITS/ML 1ML VIAL/SYRINGE SQ SCH (06:37)
[2021-01-01] MEDS ORDERED: OXYC1TAB23 PO (08:42)
--- NOTE | 2021-01-01 08:45 | RO ---
OPERATIVE NOTE DATE OF OPERATION: 12/31/2020 PREOPERATIVE DIAGNOSIS: Right 2nd toe ulceration and infection. POSTOPERATIVE DIAGNOSIS: Right 2nd toe ulceration and infection. PROCEDURE: Right 2nd toe partial amputation. SURGEON: Phi Bundy DPM INFORMATION SPECIALIST: None. ANESTHESIA: Monitored anesthesia care, preop injection of 8 mL of 1:1 mixture of 1% Lidocaine plain and 0.5% Marcaine plain. ESTIMATED BLOOD LOSS: 10 mL. MATERIALS: 3-0 nylon. SPECIMEN: Right 2nd toe, aerobic and anaerobic cultures and pathology. COMPLICATIONS: None. CONDITION: Stable. INDICATIONS: John Rowe is a 60-year-old male who was admitted with right 2nd toe infection. MRI revealed osteomyelitis of the distal phalanx. Decision was made to bring him to the operating room for partial right 2nd toe amputation. The patient site and side were identified and marked in preoperative area. Consent was reviewed and obtained. All risks, complications and alternatives to the procedure were explained to the patient in detail and all questions were answered. DESCRIPTION OF PROCEDURE: The patient was brought to the operating room on a stretcher in supine position. Monitored anesthesia care was delivered by the anesthesia team. Preop injection of 8 mL of 1:1 mixture of 1% Lidocaine plain and 0.5% Marcaine plain was injected in the right 2nd toe. Right toe was prepped and draped in normal sterile fashion. No tourniquet was used during the procedure. Toe was examined. There was ulceration at the distal toe. On expression there was approximately 2 mL of purulent fluid coming from the wound. This was swabbed for aerobic and anaerobic culture. An elliptical type incision was made around the distal aspect of the toe and the toe was disarticulated at distal interphalangeal joint. Proximal bone was in good condition. Part of the middle phalanx bone was resected with sagittal saw for ease of closure. After this the wound was irrigated using normal saline. No further necrotic tissue or nonviable tissue or bone was noted. The wound was closed using 3-0 nylon. Sterile dressings were applied. The patient was brought to PACU with vital signs stable and neurovascular status intact. He will be readmitted to the floor for antibiotics.
[2021-01-01 10:00] VITALS: BP_SYST 118; BP_SYST 128; BP_DIAS 74; BP_DIAS 76
--- NOTE | 2021-01-01 11:58 | DS.PDOC ---
Discharge Summary General Date of Admission Dec 29, 2020 at 20:21 Date of Discharge 01/01/21 Primary Care Physician: Jina Carter Attending Physician: JERI ORR MD Specialist/Consultants Involve: BRADY PARR DPM Discharge Summary PROCEDURES PERFORMED DURING STAY: Right second toe partial amputation ADMITTING DIAGNOSES: 1. Osteomyelitis of the right second toe with right foot cellulitis 2. Obesity 3. Tobacco Abuse DISCHARGE DIAGNOSES: 1. Osteomyelitis of the right second toe with right foot cellulitis 2. Obesity 3. Tobacco Abuse COMPLICATIONS/CHIEF COMPLAINT: Cellulitis Of The Right Foot. HISTORY OF PRESENT ILLNESS: Patient is a 60-year-old male with a past medical history significant for a left below the knee indication 1995 secondary to a traumatic accident, chronic right lower extremity venous stasis ulcers and history of right tibial osteomyelitis presented to the [facility] emergency department with complaint of pain and purulent drainage from his right second toe. Patient states that he isn't following Dr. Hernandez whom he has seen in the office. He stated that he had unbearable pain and on evaluation there was pradeep pus coming from his right second toe. Patient was sent from Dr. Hernandez's office to the emergency department to be evaluated. In the emergency department the patient was vitally stable. He was afebrile. He did not have a leukocytosis, however, did have elevation in his CRP. Patient was started on both vancomycin and Ancef. Patient was admitted to the hospital service for further evaluation management of right foot cellulitis and possible osteomyelitis. HOSPITAL COURSE: During hospitalization, the patient received a foot x-ray which did not show definite evidence of osteo-myelitis. This is followed up with an MRI was demonstrate osteomyelitis of the second distal phalanx and diffuse cellulitis with no abscess formation. Patient was continued on vancomycin and Ancef. His MRSA screen was negative and therefore vancomycin was discontinued. Podiatry was consulted for possible debridement versus amputation of the right great toe. Patient was continued on Ancef and received a right second toe partial amputation by podiatry..There was noted to be clean margins at the end the procedure. The bone was sent for pathology and culture. At time of discharge, the patient was instructed that he will not need antibiotics as infected portion of his toe was removed. Additionally, he has received ample antibiotics for his cellulitis. Patient was instructed to follow with Dr. Hernandez in the office as well as Dr. Parr There is also instructed to follow-up with his primary care physician in 7-10 days. Patient was discharged with Percocet as needed for pain. DISCHARGE MEDICATIONS: Please see below. ALLERGIES: Please see below. PHYSICAL EXAMINATION ON DISCHARGE: VITAL SIGNS: Please see below. GENERAL: Awake, alert, oriented, appears no acute distress, lying comfortably in bed HEENT: Atraumatic, normocephalic Eyes nonicteric. Trachea is midline mucous members are pink and moist NECK:. No palpable cervical, axillary or supraclavicular lymphadenopathy CARDIOVASCULAR EXAMINATION:. Normal S1, S2, regular rate and rhythm. No clicks or rubs. There is a faint 1 to 2/6 systolic ejection murmur present. RESPIRATORY EXAMINATION: Clear vesicular breath sounds bilaterally. Good respiratory effort. No wheezes rhonchi or rales ABDOMINAL EXAMINATION:. Soft nondistended, nontender, obese, normoactive bowel sounds throughout EXTREMITIES: No edema. Left below the knee amputation. Right foot bandage status postop right lower extremity bandaged. NEUROLOGICAL EXAMINATION: no Neurological deficits PSYCHIATRIC EXAMINATION: Mood and affect appear appropriate LABORATORY DATA: Please see below. IMAGING: PROCEDURE INFORMATION: Exam: XR Right Foot Exam date and time: 12/29/2020 8:02 PM Age: 60 years old Clinical indication: Pain; Foot; Right; Additional info: Open wound on foot, eval for osteo TECHNIQUE: Imaging protocol: XR Right foot. Views: 3 or more views. COMPARISON: No relevant prior studies available. FINDINGS: Bones/joints: No acute fracture or dislocation. No bone erosion. There is spurring of the dorsum of the foot and a large plantar and smaller dorsal calcaneal spur. Abnormal calcification is seen along the tibia and fibula not well assessed. Degeneration is seen at the ankle joint. Soft tissues: Edema is seen throughout the soft tissues. IMPRESSION: No definite x-ray evidence of osteomyelitis. Consider MRI. Electronically signed by: Maday Andrade On 12/29/2020 20:57:54 PM INDICATION: R/O osteo of the right 2nd toe. COMPARISON: Radiographs 12/29/2020. TECHNIQUE: Multiple sequences obtained in the axial, coronal and sagittal planes prior to and following the intravenous administration of 20 mL ProHance. FINDINGS: The 2nd distal phalanx demonstrates marrow edema and there is mild enhancement compatible with osteomyelitis. There is no other evidence for osteomyelitis in the right foot. There are degenerative changes at the 2nd through 4th tarsal/metatarsal joints with associated subchondral marrow edema. Diffuse superficial soft tissue edema is seen predominantly at the dorsum of the foot. There is diffuse soft tissue enhancement compatible with cellulitis. No abscess is seen. Flexor and extensor tendons demonstrate no significant tenosynovitis. The plantar forefoot there is a subcutaneous lipoma which has a maximum diameter of 2.3 cm. This extends between the flexor tendons of the 2nd and 3rd toes the level of the metatarsals. IMPRESSION: Findings compatible with osteomyelitis of the 2nd distal phalanx. Diffuse cellulitis. No abscess. <Electronically signed by Van Low > 12/30/20 1310 PROGNOSIS: Good ACTIVITY: [As tolerated]. DIET: As tolerated DISCHARGE PLAN:. Patient is to be discharged home. He is to continue wound care as per Dr. Hernandez. He is to follow-up with Dr. Hernandez in the office. He is also to follow with Dr. Parr. Patient was instructed to follow-up with his private care physician for management of his chronic medical additions. DISCHARGE INSTRUCTIONS: 1. Follow-up PCP in 7-10 days 2[address] Follow with Dr. Hernandez for wound care 3. Follow-up with Dr. Parr DISCHARGE CONDITION: [Stable]. TIME SPENT ON DISCHARGE: Greater than 40 minutes. Vital Signs/I&Os Vital Signs Date Time Temp Pulse Resp B/P (MAP) Pulse Ox O2 Delivery O2 Flow Rate FiO2 01/01/21 10:20 16 01/01/21 10:00 97.5 60 128/74 (92) 99 Room Air I&O- Last 24 Hours up to 6 AM 01/01/21 06:00 Intake Total 3325 ml Output Total 1435 ml Balance 1890 ml Microbiology Microbiology 12/31/20 Gram Stain - Final, Resulted 12/31/20 Abscess Culture, Resulted Pending 12/31/20 Anaerobic Culture, Received Pending 12/29/20 Blood Culture - Preliminary, Resulted No Growth after 48 hours. All Specime... 12/29/20 Blood Culture - Preliminary, Resulted No Growth after 48 hours. All Specime... Discharge Medications Scheduled PRN Oxycodone HCl/Acetaminophen (Oxycodone-Acetaminophen 5-325) 1 Each Tablet, 1 TAB PO TIDP PRN for pain Allergies Coded Allergies: No Known Allergies (Unverified , 12/04/17) GME ATTESTATION GME ATTESTATION My faculty preceptor for this patient encounter was physically present during the encounter and was fully available. All aspects of the patient interview, examination, medical decision making process, and medical care plan development were reviewed and approved by the faculty preceptor. The faculty preceptor is aware and concurs with the plan as stated in the body of this note and will attest to such by his/her cosignature. ATTENDING NOTE I, Jeri Orr, have independently examined this patient and performed my own physical exam, as well as reviewed the documentation and edited where necessary. I have discussed in detail with the resident / student the findings and plan of treatment as documented by the resident / student and edited their note. I agree with their findings and treatment plan and have edited their documentation. I will continue to follow the patient during this hospital stay. Time spent on discharge 35 minutes TANGELA LAMB DO Jan 01, 2021 11:58 JERI ORR MD Jan 01, 2021 13:18
== END 2021-01-01 13:30 | disposition home or self-care (01) | DRG 314 ==
LOC: M ED 18:32 → M ED INP 20:21 → ENRESERV 21:39 → M MSPAV 22:30
PROVIDERS: ADMIT Internal Medicine; ATTEND Internal Medicine
PROC: 0Y6R0Z2 Detachment at Right 2nd Toe, Mid, Open Approach (ICD-10-PCS; principal; 2020-12-31 16:00)
DX: M86.171 Other acute osteomyelitis, right ankle and foot (principal); I87.311 Chronic venous hypertension (idiopathic) with ulcer of right lower extremity; L97.519 Non-pressure chronic ulcer of other part of right foot with unspecified severity; L97.814 Non-pressure chronic ulcer of other part of right lower leg with necrosis of bone; L03.032 Cellulitis of left toe; D64.9 Anemia, unspecified; F17.210 Nicotine dependence, cigarettes, uncomplicated; E66.9 Obesity, unspecified; I89.0 Lymphedema, not elsewhere classified; Z68.35 Body mass index [BMI] 35.0-35.9, adult; Z89.512 Acquired absence of left leg below knee; Z20.822 Contact with and (suspected) exposure to COVID-19

== ENCOUNTER 2021-06-15 16:25 | Emergency (ER) | payer OTHER ==
[~2021-06-15] VITALS: Ht 185.4 cm; Wt 119.7 kg
[~2021-06-15 16:25] MED LIST changes: +GABA-283 PO; -GABA-845 PO; +OXYC1TAB23 PO
[2021-06-15 16:26] VITALS: BP 143/85
== END 2021-06-15 16:48 | disposition left against medical advice (07) ==
LOC: M ED 16:25
DX: Z53.21 Procedure and treatment not carried out due to patient leaving prior to being seen by health care provider (principal)

== ENCOUNTER → 2021-08-03 | Outpatient (CLI) | payer OTHER ==
--- NOTE | 2021-08-04 08:58 | REP ---
INDICATION: NICOTINE DEPEND. COMPARISON: 05/01/[address] angio chest TECHNIQUE: Axial noncontrast images from the thoracic inlet to the upper abdomen using low-dose lung screening technique (LDCT). As per the protocol only lung window images were sent to the read station for interpretation FINDINGS: There is an unchanged right lower lobe pleural base nodule. There is an unchanged left lower lobe pleural base nodule. There is an unchanged right middle lobe nodule. No new abnormal nodules, masses, or opacities have developed. Secondary to the technique utilized in obtaining the exam I cannot effectively compared the mediastinum or pulmonary octavia. Grossly, the appear unchanged. Grossly, the imaged upper abdomen and imaged osseous structures appear unchanged. IMPRESSION: 1. Stable lung rads category 2 lung ferreira as described above. 2. Pulmonary octavia as described above. If clinically relevant obtained diagnostic contrast-enhanced CTs of the pulmonary octavia can be compared. <Electronically signed by Joel Gruber > 08/04/21 0899
== END ==
LOC: M RAD 10:36
PROVIDERS: ATTEND Nurse Practitioner Family
DX: F17.210 Nicotine dependence, cigarettes, uncomplicated (principal)

== ENCOUNTER → 2021-08-23 | Outpatient (REF) | payer OTHER | LOC: M SFHCCLAY 14:56 | PROVIDERS: ATTEND Nurse Practitioner Family | DX: I82.811 Embolism and thrombosis of superficial veins of right lower extremity (principal); F17.210 Nicotine dependence, cigarettes, uncomplicated; I87.311 Chronic venous hypertension (idiopathic) with ulcer of right lower extremity ==

== ENCOUNTER 2022-01-09 15:52 | Inpatient (IN) | payer OTHER ==
[~2022-01-09] VITALS: Ht 185.4 cm; Wt 115.3 kg
[2022-01-09] MEDS ORDERED: HYDROMORPHONE HCL 0.5 MG/ 0.5 ML SYRINGE (J1170 PER 1) IV ONE (16:25)
[2022-01-09] MEDS ORDERED: NS 1,000 ML IV ONE (16:25)
[2022-01-09 17:19] LABS: BASO % 0.5 % (0.0-1.0); EOS % 0.5 % (0.0-3.0); HEMATOCRIT 32.6 % (42.0-52.0); HEMOGLOBIN 10.7 g/dl (13.5-17.5); LYMPH # 0.5 10^3/uL (1.5-5.0); LYMPH % 6.4 % (24.0-44.0); MEAN CORPUSCULAR HGB CONC 32.8 g/dl (32.0-36.5); MEAN CORPUSCULAR VOLUME 79.1 fl (80.0-96.0); MONO # 0.8 10^3/uL (0.0-0.8); MONO % 9.8 % (2.0-8.0); NEUTROPHILS % 82.2 % (36.0-66.0); PLATELET COUNT, AUTOMATED 186 10^3/uL (150-450); RED BLOOD COUNT 4.12 10^6/uL (4.30-6.10); WHITE BLOOD COUNT 8.5 10^3/uL (4.0-10.0)
[2022-01-09 17:38] LABS: INR 1.2; PROTHROMBIN TIME 15.6 SECONDS (12.7-14.5)
[2022-01-09 17:39] LABS: PARTIAL THROMBOPLASTIN TIME 42.2 SECONDS (25.9-37.0)
[2022-01-09 17:42] LABS: ALBUMIN 2.2 GM/DL (3.2-5.2); BILIRUBIN,DIRECT 0.2 MG/DL (0.0-0.2); BILIRUBIN,TOTAL 0.5 MG/DL (0.2-1.0); C REACTIVE PROTEIN QUANTITATIV 23.7 MG/DL (0.00-0.30); CALCIUM LEVEL 7.9 MG/DL (8.8-10.2); CREATININE FOR GFR 1.4 MG/DL (0.70-1.30); GLOMERULAR FILTRATION RATE 54.7 (>49); TOTAL PROTEIN 6.7 GM/DL (6.4-8.2)
[2022-01-09] MEDS ORDERED: methylPREDNISolone 40MG 1ML VIAL IV ONE (18:00)
[2022-01-09 18:01] LABS: ERYTHROCYTE SEDIMENTATION RATE 126 mm/hr (0-20)
[2022-01-09] MEDS ORDERED: ISOVUE-370 76% 100ML VIAL As Ordered ONE (18:35)
[2022-01-09 18:59] LABS: URIC ACID 4.5 MG/DL (3.5-7.2)
[2022-01-09] MEDS ORDERED: NORCO, ANEXSIA 5/325MG TABLET (HYDROcodone/ACETAMINOPHEN) PO PRN (23:55)
[2022-01-09] MEDS ORDERED: ACETAMINOPHEN TAB 650MG DOSE (2X325MG) PO PRN (23:55)
[2022-01-09] MEDS ORDERED: MOM 30ML SUSPENSION UDC PO PRN (23:55)
[2022-01-10] MEDS ORDERED: cefTRIAXone SOD 1 GM in D5W MINI-BAG PLUS 50 ML IV SCH ×2
[2022-01-10] MEDS: NS 1,000 ML IV SCH ×3 (00:15→20:55)
[2022-01-10] MEDS ORDERED: HOME MED LIST COMPLETE! XX SCH (00:35)
[2022-01-10 00:58] LABS: RSV AMPLIFICATION NEGATIVE (NEGATIVE)
[2022-01-10 02:15] VITALS: BP 127/79
[2022-01-10 06:00] VITALS: BP 110/61
[2022-01-10] MEDS ORDERED: methylPREDNISolone 40MG 1ML VIAL IV SCH (06:00)
[2022-01-10] MEDS: HEPARIN SOD (PORCINE) 5000UNITS/ML 1ML VIAL/SYRINGE SC SCH ×3 (06:02→20:55)
[2022-01-10 06:40] LABS: HEMATOCRIT 30.2 % (42.0-52.0); HEMOGLOBIN 9.7 g/dl (13.5-17.5); LYMPH # 0.3 10^3/uL (1.5-5.0); LYMPH % 6.2 % (24.0-44.0); MEAN CORPUSCULAR HEMOGLOBIN 26.3 pg (27.0-33.0); MEAN CORPUSCULAR HGB CONC 32.1 g/dl (32.0-36.5); MEAN CORPUSCULAR VOLUME 81.8 fl (80.0-96.0); MONO # 0.4 10^3/uL (0.0-0.8); MONO % 7.2 % (2.0-8.0); NEUTROPHILS # 4.4 10^3/uL (1.5-8.5); NEUTROPHILS % 86.2 % (36.0-66.0); PLATELET COUNT, AUTOMATED 168 10^3/uL (150-450); RED BLOOD COUNT 3.69 10^6/uL (4.30-6.10); WHITE BLOOD COUNT 5.2 10^3/uL (4.0-10.0)
[2022-01-10 07:03] LABS: CALCIUM LEVEL 7.7 MG/DL (8.8-10.2); CREATININE FOR GFR 1.32 MG/DL (0.70-1.30); GLOMERULAR FILTRATION RATE 58.5 (>49); POTASSIUM SERUM 5.2 MEQ/L (3.5-5.1)
[2022-01-10] MEDS: DOCUSATE SODIUM 100MG CAPSULE PO SCH ×2 (08:07→20:55)
[2022-01-10 14:00] VITALS: BP 118/76
[2022-01-10] MEDS ORDERED: VANCOMYCIN HCL 1,000 MG, VIAL MATE ADAPTER 1 EACH in NS 250 ML IV ONE ×2 (16:00→17:00)
[2022-01-10] MEDS ORDERED: traMADol 50 MG TAB PO PRN (16:45)
[2022-01-10 17:14] LABS: CHOLESTEROL RISK RATIO 6.388 (<5)
[2022-01-10] MEDS: ASPIRIN 81MG ENTERIC TABLET PO SCH (17:58)
[2022-01-10] MEDS: SENNA 8.6 MG TAB (SENOKOT) PO SCH (20:55)
[2022-01-10] MEDS: SIMVASTATIN 40 MG TAB PO SCH (20:55)
[2022-01-10 22:00] VITALS: BP 123/67
[2022-01-11] MEDS: MORPHINE 2 MG/ML 1ML VIAL IV PRN ×3 (04:19→18:43)
[2022-01-11] MEDS: VANCOMYCIN HCL 1,000 MG, VIAL MATE ADAPTER 1 EACH in NS 250 ML IV SCH ×2 (04:19→16:51)
[2022-01-11 06:00] VITALS: BP 123/70
[2022-01-11] MEDS: HEPARIN SOD (PORCINE) 5000UNITS/ML 1ML VIAL/SYRINGE SC SCH ×3 (06:39→21:24)
[2022-01-11] MEDS: NS 1,000 ML IV SCH ×2 (06:39→13:12)
[2022-01-11 06:44] LABS: BASO % 0.3 % (0.0-1.0); EOS % 0.1 % (0.0-3.0); HEMATOCRIT 29.9 % (42.0-52.0); HEMOGLOBIN 9.2 g/dl (13.5-17.5); LYMPH # 0.8 10^3/uL (1.5-5.0); LYMPH % 10.5 % (24.0-44.0); MEAN CORPUSCULAR HEMOGLOBIN 25.3 pg (27.0-33.0); MEAN CORPUSCULAR HGB CONC 30.8 g/dl (32.0-36.5); MEAN CORPUSCULAR VOLUME 82.1 fl (80.0-96.0); MONO # 0.6 10^3/uL (0.0-0.8); MONO % 7.4 % (2.0-8.0); NEUTROPHILS # 6.4 10^3/uL (1.5-8.5); NEUTROPHILS % 81.1 % (36.0-66.0); PLATELET COUNT, AUTOMATED 178 10^3/uL (150-450); RED BLOOD COUNT 3.64 10^6/uL (4.30-6.10); WHITE BLOOD COUNT 7.9 10^3/uL (4.0-10.0)
[2022-01-11 07:04] LABS: BLOOD UREA NITROGEN 29 MG/DL (7-18); CARBON DIOXIDE LEVEL 27 MEQ/L (21-32); CHLORIDE LEVEL 110 MEQ/L (98-107); CREATININE FOR GFR 1.28 MG/DL (0.70-1.30); GLOMERULAR FILTRATION RATE > 60.0 (>49); GLUCOSE, FASTING 132 MG/DL (70-100); SODIUM LEVEL 139 MEQ/L (136-145)
[2022-01-11] MEDS: DOCUSATE SODIUM 100MG CAPSULE PO SCH ×2 (09:02→21:00)
[2022-01-11] MEDS: ASPIRIN 81MG ENTERIC TABLET PO SCH (09:02)
[2022-01-11 14:00] VITALS: BP 161/75
[2022-01-11] MEDS: SIMVASTATIN 40 MG TAB PO SCH (21:24)
[2022-01-11] MEDS: SENNA 8.6 MG TAB (SENOKOT) PO SCH (21:24)
[2022-01-11 22:00] VITALS: BP 143/68
[2022-01-12] MEDS: VANCOMYCIN HCL 1,000 MG, VIAL MATE ADAPTER 1 EACH in NS 250 ML IV SCH (04:13)
[2022-01-12] MEDS: MORPHINE 2 MG/ML 1ML VIAL IV PRN ×4 (04:30→21:18)
[2022-01-12 06:00] VITALS: BP 146/79
[2022-01-12 06:11] LABS: BASO % 0.7 % (0.0-1.0); EOS # 0.1 10^3/uL (0.0-0.5); EOS % 1.7 % (0.0-3.0); HEMATOCRIT 27.5 % (42.0-52.0); HEMOGLOBIN 8.8 g/dl (13.5-17.5); LYMPH # 0.8 10^3/uL (1.5-5.0); LYMPH % 20.3 % (24.0-44.0); MEAN CORPUSCULAR VOLUME 81.4 fl (80.0-96.0); MONO # 0.4 10^3/uL (0.0-0.8); MONO % 10.6 % (2.0-8.0); NEUTROPHILS # 2.7 10^3/uL (1.5-8.5); NEUTROPHILS % 66.2 % (36.0-66.0); PLATELET COUNT, AUTOMATED 185 10^3/uL (150-450); RED BLOOD COUNT 3.38 10^6/uL (4.30-6.10); WHITE BLOOD COUNT 4.1 10^3/uL (4.0-10.0)
[2022-01-12] MEDS: HEPARIN SOD (PORCINE) 5000UNITS/ML 1ML VIAL/SYRINGE SC SCH ×3 (06:18→21:19)
[2022-01-12 06:31] LABS: BLOOD UREA NITROGEN 23 MG/DL (7-18); CALCIUM LEVEL 7.8 MG/DL (8.8-10.2); CARBON DIOXIDE LEVEL 23 MEQ/L (21-32); CHLORIDE LEVEL 109 MEQ/L (98-107); CREATININE FOR GFR 1.02 MG/DL (0.70-1.30); GLOMERULAR FILTRATION RATE > 60.0 (>49); GLUCOSE, FASTING 91 MG/DL (70-100); POTASSIUM SERUM 4.4 MEQ/L (3.5-5.1); SODIUM LEVEL 139 MEQ/L (136-145)
[2022-01-12 08:22] LABS: FERRITIN 131 NG/ML (26-388); IRON (FE) 16 UG/DL (65-175); PERCENT SATURATION 8.7 % (19.7-50.0); TOTAL IRON BINDING CAPACITY 184 UG/DL (250-450)
[2022-01-12] MEDS: ASPIRIN 81MG ENTERIC TABLET PO SCH (08:44)
[2022-01-12] MEDS: DOCUSATE SODIUM 100MG CAPSULE PO SCH ×2 (08:44→21:19)
[2022-01-12] MEDS: NAFCILLIN SOD 2 GM in D5W MINI-BAG PLUS 50 ML IV SCH ×2 (12:40→19:42)
[2022-01-12 14:00] VITALS: BP 137/84
[2022-01-12] MEDS ORDERED: ONDANSETRON 4MG/2ML VIAL IV ONE (17:20)
[2022-01-12] MEDS ORDERED: PROHANCE 279.3MG/ML 15ML VIAL As Ordered ONE (19:14)
[2022-01-12] MEDS ORDERED: PROHANCE 279.3MG/ML 5ML VIAL As Ordered ONE (19:15)
[2022-01-12 20:09] VITALS: BP 145/70
[2022-01-12] MEDS: SENNA 8.6 MG TAB (SENOKOT) PO SCH (21:19)
[2022-01-12] MEDS: SIMVASTATIN 40 MG TAB PO SCH (21:19)
[2022-01-13] MEDS: NAFCILLIN SOD 2 GM in D5W MINI-BAG PLUS 50 ML IV SCH ×3 (00:07→12:12)
[2022-01-13] MEDS: HEPARIN SOD (PORCINE) 5000UNITS/ML 1ML VIAL/SYRINGE SC SCH ×3 (05:35→21:18)
[2022-01-13] MEDS: MORPHINE 2 MG/ML 1ML VIAL IV PRN ×5 (05:44→22:08)
[2022-01-13 06:01] VITALS: BP 138/82
[2022-01-13 08:31] LABS: BASO % 0.8 % (0.0-1.0); EOS # 0.2 10^3/uL (0.0-0.5); EOS % 3.1 % (0.0-3.0); HEMATOCRIT 29.7 % (42.0-52.0); HEMOGLOBIN 9.7 g/dl (13.5-17.5); LYMPH % 18.6 % (24.0-44.0); MEAN CORPUSCULAR HEMOGLOBIN 26.1 pg (27.0-33.0); MEAN CORPUSCULAR HGB CONC 32.7 g/dl (32.0-36.5); MEAN CORPUSCULAR VOLUME 80.1 fl (80.0-96.0); MONO # 0.4 10^3/uL (0.0-0.8); MONO % 7.1 % (2.0-8.0); NEUTROPHILS # 3.6 10^3/uL (1.5-8.5); NEUTROPHILS % 69.6 % (36.0-66.0); PLATELET COUNT, AUTOMATED 217 10^3/uL (150-450); RED BLOOD COUNT 3.71 10^6/uL (4.30-6.10); WHITE BLOOD COUNT 5.2 10^3/uL (4.0-10.0)
[2022-01-13 09:06] LABS: BLOOD UREA NITROGEN 20 MG/DL (7-18); CALCIUM LEVEL 7.9 MG/DL (8.8-10.2); CARBON DIOXIDE LEVEL 30 MEQ/L (21-32); CHLORIDE LEVEL 105 MEQ/L (98-107); GLOMERULAR FILTRATION RATE > 60.0 (>49); GLUCOSE, FASTING 111 MG/DL (70-100); POTASSIUM SERUM 4.5 MEQ/L (3.5-5.1); SODIUM LEVEL 137 MEQ/L (136-145)
[2022-01-13] MEDS: ASPIRIN 81MG ENTERIC TABLET PO SCH (09:20)
[2022-01-13] MEDS: DOCUSATE SODIUM 100MG CAPSULE PO SCH ×2 (09:20→21:18)
[2022-01-13 14:00] VITALS: BP 142/76
[2022-01-13] MEDS: predniSONE 20 MG TAB PO SCH (14:28)
[2022-01-13 16:40] LABS: C REACTIVE PROTEIN QUANTITATIV 9.29 MG/DL (0.00-0.30)
[2022-01-13] MEDS: LACTOBACILLUS ACIDOPHILUS CAP (BACID) PO SCH (17:56)
[2022-01-13] MEDS: ceFAZolin SOD 2 GM in IV 1 EA IV SCH (17:57)
[2022-01-13] MEDS: SENNA 8.6 MG TAB (SENOKOT) PO SCH (21:18)
[2022-01-13] MEDS: SIMVASTATIN 40 MG TAB PO SCH (21:18)
[2022-01-13 22:00] VITALS: BP 139/73
[2022-01-14] MEDS: ceFAZolin SOD 2 GM in IV 1 EA IV SCH ×3 (02:49→17:07)
[2022-01-14] MEDS: HEPARIN SOD (PORCINE) 5000UNITS/ML 1ML VIAL/SYRINGE SC SCH ×3 (05:34→21:15)
[2022-01-14] MEDS: MORPHINE 2 MG/ML 1ML VIAL IV PRN ×4 (05:39→21:15)
[2022-01-14 06:00] VITALS: BP 165/78
[2022-01-14 07:40] LABS: HEMATOCRIT 33.1 % (42.0-52.0); HEMOGLOBIN 10.7 g/dl (13.5-17.5); MEAN CORPUSCULAR HGB CONC 32.3 g/dl (32.0-36.5); MEAN CORPUSCULAR VOLUME 80.5 fl (80.0-96.0); PLATELET COUNT, AUTOMATED 271 10^3/uL (150-450); RED BLOOD COUNT 4.11 10^6/uL (4.30-6.10); WHITE BLOOD COUNT 6.3 10^3/uL (4.0-10.0)
[2022-01-14 07:58] LABS: BLOOD UREA NITROGEN 21 MG/DL (7-18); C REACTIVE PROTEIN QUANTITATIV 9.56 MG/DL (0.00-0.30); CALCIUM LEVEL 8.5 MG/DL (8.8-10.2); CARBON DIOXIDE LEVEL 29 MEQ/L (21-32); CHLORIDE LEVEL 106 MEQ/L (98-107); CREATININE FOR GFR 1.03 MG/DL (0.70-1.30); GLOMERULAR FILTRATION RATE > 60.0 (>49); GLUCOSE, FASTING 96 MG/DL (70-100); POTASSIUM SERUM 4.2 MEQ/L (3.5-5.1); SODIUM LEVEL 138 MEQ/L (136-145)
[2022-01-14 08:15] LABS: ATYPICAL LYMPH 3 % (0-5); BASOPHILS 2 % (0-1); EOSINOPHILS 6 % (0-3); LYMPHOCYTES 16 % (16-44); MONOCYTES 4 % (0-5); NEUTROPHILS 68 % (28-66)
[2022-01-14 08:16] LABS: GIANT PLATELETS 1+; HYPERSEGMENTED POLYS 1+; MICROCYTOSIS 1+; OVALOCYTES 1+; PLATELET ESTIMATE NORMAL (NORMAL)
[2022-01-14] MEDS: LACTOBACILLUS ACIDOPHILUS CAP (BACID) PO SCH ×2 (09:44→17:40)
[2022-01-14] MEDS: ASPIRIN 81MG ENTERIC TABLET PO SCH (09:44)
[2022-01-14] MEDS: DOCUSATE SODIUM 100MG CAPSULE PO SCH ×2 (09:44→21:15)
[2022-01-14] MEDS: predniSONE 20 MG TAB PO SCH (09:44)
[2022-01-14 14:00] VITALS: BP 133/75
[2022-01-14] MEDS: SENNA 8.6 MG TAB (SENOKOT) PO SCH (21:14)
[2022-01-14] MEDS: SIMVASTATIN 40 MG TAB PO SCH (21:15)
[2022-01-14 21:57] VITALS: BP 143/90
[2022-01-15] MEDS: ceFAZolin SOD 2 GM in IV 1 EA IV SCH ×3 (02:15→18:00)
[2022-01-15] MEDS: MORPHINE 2 MG/ML 1ML VIAL IV PRN ×5 (02:15→22:58)
[2022-01-15 06:00] VITALS: BP 131/80
[2022-01-15] MEDS: HEPARIN SOD (PORCINE) 5000UNITS/ML 1ML VIAL/SYRINGE SC SCH ×3 (06:19→20:42)
[2022-01-15 06:47] LABS: BASO # 0.1 10^3/uL (0.0-0.2); BASO % 1.3 % (0.0-1.0); EOS # 0.2 10^3/uL (0.0-0.5); EOS % 3.9 % (0.0-3.0); HEMATOCRIT 34.1 % (42.0-52.0); LYMPH # 1.4 10^3/uL (1.5-5.0); LYMPH % 22.2 % (24.0-44.0); MEAN CORPUSCULAR HEMOGLOBIN 25.9 pg (27.0-33.0); MEAN CORPUSCULAR HGB CONC 32.3 g/dl (32.0-36.5); MEAN CORPUSCULAR VOLUME 80.2 fl (80.0-96.0); MONO # 0.6 10^3/uL (0.0-0.8); NEUTROPHILS # 3.8 10^3/uL (1.5-8.5); NEUTROPHILS % 61.2 % (36.0-66.0); PLATELET COUNT, AUTOMATED 291 10^3/uL (150-450); RED BLOOD COUNT 4.25 10^6/uL (4.30-6.10); WHITE BLOOD COUNT 6.2 10^3/uL (4.0-10.0)
[2022-01-15 07:06] LABS: BLOOD UREA NITROGEN 26 MG/DL (7-18); CALCIUM LEVEL 8.8 MG/DL (8.8-10.2); CARBON DIOXIDE LEVEL 27 MEQ/L (21-32); CHLORIDE LEVEL 104 MEQ/L (98-107); CREATININE FOR GFR 1.11 MG/DL (0.70-1.30); GLOMERULAR FILTRATION RATE > 60.0 (>49); GLUCOSE, FASTING 94 MG/DL (70-100); SODIUM LEVEL 137 MEQ/L (136-145)
[2022-01-15] MEDS: ASPIRIN 81MG ENTERIC TABLET PO SCH (09:02)
[2022-01-15] MEDS: predniSONE 20 MG TAB PO SCH (09:02)
[2022-01-15] MEDS: LACTOBACILLUS ACIDOPHILUS CAP (BACID) PO SCH ×2 (09:02→18:01)
[2022-01-15] MEDS: DOCUSATE SODIUM 100MG CAPSULE PO SCH ×2 (09:02→20:42)
[2022-01-15 14:00] VITALS: BP 138/84
[2022-01-15] MEDS ORDERED: CALCIUM CARBONATE 500 MG CHEW U/D PO PRN (19:45)
[2022-01-15] MEDS: SENNA 8.6 MG TAB (SENOKOT) PO SCH (20:42)
[2022-01-15] MEDS: SIMVASTATIN 40 MG TAB PO SCH (20:42)
[2022-01-15 22:00] VITALS: BP 144/72
[2022-01-16] VITALS (7 sets, daily range): BP systolic 126–146; BP diastolic 70–84
[2022-01-16] MEDS: ceFAZolin SOD 2 GM in IV 1 EA IV SCH ×3 (02:27→18:55)
[2022-01-16] MEDS: MORPHINE 2 MG/ML 1ML VIAL IV PRN (05:24)
[2022-01-16] MEDS: HEPARIN SOD (PORCINE) 5000UNITS/ML 1ML VIAL/SYRINGE SC SCH ×3 (05:24→21:02)
[2022-01-16 06:52] LABS: HEMATOCRIT 38.1 % (42.0-52.0); HEMOGLOBIN 11.9 g/dl (13.5-17.5); MEAN CORPUSCULAR HEMOGLOBIN 25.3 pg (27.0-33.0); MEAN CORPUSCULAR HGB CONC 31.2 g/dl (32.0-36.5); MEAN CORPUSCULAR VOLUME 80.9 fl (80.0-96.0); PLATELET COUNT, AUTOMATED 372 10^3/uL (150-450); RED BLOOD COUNT 4.71 10^6/uL (4.30-6.10); WHITE BLOOD COUNT 7.9 10^3/uL (4.0-10.0)
[2022-01-16 07:14] LABS: BLOOD UREA NITROGEN 31 MG/DL (7-18); C REACTIVE PROTEIN QUANTITATIV 5.06 MG/DL (0.00-0.30); CALCIUM LEVEL 8.6 MG/DL (8.8-10.2); CARBON DIOXIDE LEVEL 29 MEQ/L (21-32); CHLORIDE LEVEL 105 MEQ/L (98-107); CREATININE FOR GFR 1.19 MG/DL (0.70-1.30); GLOMERULAR FILTRATION RATE > 60.0 (>49); GLUCOSE, FASTING 110 MG/DL (70-100); POTASSIUM SERUM 4.4 MEQ/L (3.5-5.1); SODIUM LEVEL 138 MEQ/L (136-145)
[2022-01-16 07:53] LABS: BASOPHILS 3 % (0-1); EOSINOPHILS 1 % (0-3); LYMPHOCYTES 20 % (16-44); METAMYELOCYTES 1 % (0-0); MONOCYTES 5 % (0-5); MYELOCYTES 1 % (0-0); NEUTROPHILS 68 % (28-66); PLATELET ESTIMATE NORMAL (NORMAL)
[2022-01-16 07:55] LABS: ANISOCYTOSIS 1+
[2022-01-16] MEDS: LACTOBACILLUS ACIDOPHILUS CAP (BACID) PO SCH ×2 (08:05→18:55)
[2022-01-16] MEDS: predniSONE 20 MG TAB PO SCH (08:05)
[2022-01-16] MEDS: DOCUSATE SODIUM 100MG CAPSULE PO SCH ×2 (08:05→21:02)
[2022-01-16] MEDS: ASPIRIN 81MG ENTERIC TABLET PO SCH (08:05)
[2022-01-16 08:18] LABS: ERYTHROCYTE SEDIMENTATION RATE 64 mm/hr (0-20)
[2022-01-16] MEDS: NORCO, ANEXSIA 5/325MG TABLET (HYDROcodone/ACETAMINOPHEN) PO PRN ×3 (08:44→21:13)
[2022-01-16] MEDS ORDERED: LIDOCAINE VISCOUS 2% SOLN 15ML UDC As Ordered ONE (17:13)
[2022-01-16] MEDS ORDERED: CETACAINE SPRAY 5GM As Ordered ONE (17:13)
[2022-01-16] MEDS: SENNA 8.6 MG TAB (SENOKOT) PO SCH (21:02)
[2022-01-16] MEDS: SIMVASTATIN 40 MG TAB PO SCH (21:02)
[2022-01-17] MEDS: ceFAZolin SOD 2 GM in IV 1 EA IV SCH ×3 (02:03→17:26)
[2022-01-17] MEDS: HEPARIN SOD (PORCINE) 5000UNITS/ML 1ML VIAL/SYRINGE SC SCH ×3 (05:08→21:42)
[2022-01-17] MEDS: NORCO, ANEXSIA 5/325MG TABLET (HYDROcodone/ACETAMINOPHEN) PO PRN ×4 (05:09→21:41)
[2022-01-17 06:00] VITALS: BP 136/84
[2022-01-17 08:00] VITALS: BP 139/83
[2022-01-17 08:11] LABS: HEMATOCRIT 34.8 % (42.0-52.0); HEMOGLOBIN 10.7 g/dl (13.5-17.5); MEAN CORPUSCULAR HEMOGLOBIN 25.2 pg (27.0-33.0); MEAN CORPUSCULAR HGB CONC 30.7 g/dl (32.0-36.5); MEAN CORPUSCULAR VOLUME 81.9 fl (80.0-96.0); PLATELET COUNT, AUTOMATED 353 10^3/uL (150-450); RED BLOOD COUNT 4.25 10^6/uL (4.30-6.10)
[2022-01-17 08:39] LABS: ALBUMIN 2.3 GM/DL (3.2-5.2); ALT/SGPT 8 U/L (12-78); BILIRUBIN,TOTAL 0.2 MG/DL (0.2-1.0); BLOOD UREA NITROGEN 24 MG/DL (7-18); CALCIUM LEVEL 8.6 MG/DL (8.8-10.2); CARBON DIOXIDE LEVEL 31 MEQ/L (21-32); CHLORIDE LEVEL 105 MEQ/L (98-107); CREATININE FOR GFR 1.19 MG/DL (0.70-1.30); GLOMERULAR FILTRATION RATE > 60.0 (>49); GLUCOSE, FASTING 109 MG/DL (70-100); POTASSIUM SERUM 4.4 MEQ/L (3.5-5.1); SODIUM LEVEL 139 MEQ/L (136-145); TOTAL PROTEIN 6.7 GM/DL (6.4-8.2)
[2022-01-17] MEDS: DOCUSATE SODIUM 100MG CAPSULE PO SCH ×2 (09:02→21:41)
[2022-01-17] MEDS: LACTOBACILLUS ACIDOPHILUS CAP (BACID) PO SCH ×2 (09:02→17:26)
[2022-01-17] MEDS: ASPIRIN 81MG ENTERIC TABLET PO SCH (09:02)
[2022-01-17] MEDS ORDERED: LIDOCAINE 1% MDV 20ML VIAL As Ordered ONE (14:59)
[2022-01-17 16:00] VITALS: BP 144/70
[2022-01-17] MEDS ORDERED: NORCO, ANEXSIA 5/325MG TABLET (HYDROcodone/ACETAMINOPHEN) PO PRN (17:10)
[2022-01-17] MEDS ORDERED: SODIUM CHLORIDE 0.9% INJ 10 ML SYR IV PRN (17:10)
[2022-01-17] MEDS: SODIUM CHLORIDE 0.9% INJ 10 ML SYR IV SCH (17:27)
[2022-01-17] MEDS: SENNA 8.6 MG TAB (SENOKOT) PO SCH (21:41)
[2022-01-17] MEDS: SIMVASTATIN 40 MG TAB PO SCH (21:42)
[2022-01-17 22:00] VITALS: BP 140/76
[2022-01-18] MEDS: ceFAZolin SOD 2 GM in IV 1 EA IV SCH ×2 (02:31→09:16)
[2022-01-18] MEDS: NORCO, ANEXSIA 5/325MG TABLET (HYDROcodone/ACETAMINOPHEN) PO PRN ×3 (02:55→13:37)
[2022-01-18] MEDS: HEPARIN SOD (PORCINE) 5000UNITS/ML 1ML VIAL/SYRINGE SC SCH (05:33)
[2022-01-18] MEDS: SODIUM CHLORIDE 0.9% INJ 10 ML SYR IV SCH (05:34)
[2022-01-18 06:00] VITALS: BP 151/84
[2022-01-18] MEDS ORDERED: LACTIC ACID 12% LOTION 225 GM BTL TOP SCH (09:00)
[2022-01-18] MEDS: ASPIRIN 81MG ENTERIC TABLET PO SCH (09:16)
[2022-01-18] MEDS: DOCUSATE SODIUM 100MG CAPSULE PO SCH (09:16)
[2022-01-18] MEDS: LACTOBACILLUS ACIDOPHILUS CAP (BACID) PO SCH (09:16)
[2022-01-18 09:28] LABS: BASO # 0.1 10^3/uL (0.0-0.2); EOS # 0.2 10^3/uL (0.0-0.5); EOS % 2.7 % (0.0-3.0); HEMATOCRIT 33.4 % (42.0-52.0); HEMOGLOBIN 10.5 g/dl (13.5-17.5); LYMPH # 1.2 10^3/uL (1.5-5.0); LYMPH % 20.2 % (24.0-44.0); MEAN CORPUSCULAR HEMOGLOBIN 25.7 pg (27.0-33.0); MEAN CORPUSCULAR HGB CONC 31.4 g/dl (32.0-36.5); MEAN CORPUSCULAR VOLUME 81.9 fl (80.0-96.0); MONO # 0.5 10^3/uL (0.0-0.8); MONO % 8.9 % (2.0-8.0); NEUTROPHILS # 3.7 10^3/uL (1.5-8.5); NEUTROPHILS % 63.6 % (36.0-66.0); PLATELET COUNT, AUTOMATED 283 10^3/uL (150-450); RED BLOOD COUNT 4.08 10^6/uL (4.30-6.10); WHITE BLOOD COUNT 5.9 10^3/uL (4.0-10.0)
[2022-01-18 09:58] LABS: ALBUMIN 2.1 GM/DL (3.2-5.2); ALT/SGPT 11 U/L (12-78); BILIRUBIN,TOTAL 0.2 MG/DL (0.2-1.0); BLOOD UREA NITROGEN 21 MG/DL (7-18); CALCIUM LEVEL 8.7 MG/DL (8.8-10.2); CARBON DIOXIDE LEVEL 26 MEQ/L (21-32); CHLORIDE LEVEL 108 MEQ/L (98-107); GLOMERULAR FILTRATION RATE > 60.0 (>49); GLUCOSE, FASTING 140 MG/DL (70-100); MAGNESIUM LEVEL 2.3 MG/DL (1.8-2.4); POTASSIUM SERUM 4.2 MEQ/L (3.5-5.1); SODIUM LEVEL 139 MEQ/L (136-145); TOTAL PROTEIN 6.2 GM/DL (6.4-8.2)
[2022-01-18] MEDS ORDERED: SIMV40TA20 PO (11:17)
[2022-01-18] MEDS ORDERED: CEFA2PLA3 IV (11:17)
[2022-01-18] MEDS ORDERED: ACET1TAB55 PO (11:17)
[2022-01-18] MEDS ORDERED: HYDR-3715 PO (11:17)
[2022-01-18] MEDS ORDERED: SENN18TA PO (11:17)
[2022-01-18] MEDS ORDERED: PANT40TA29 PO (11:17)
[2022-01-18] MEDS ORDERED: ASPI-551 PO (11:17)
[2022-01-18] MEDS ORDERED: RISATAB3 PO (11:17)
[2022-01-18] MEDS ORDERED: PRED10TA2 PO (12:20)
== END 2022-01-18 14:15 | disposition home or self-care (01) | DRG 383 ==
LOC: M ED 15:52 → M ED INP 23:01 → ENRESERV 01-10 01:16 → M MS5PR 01-10 02:15
PROVIDERS: ADMIT Family Medicine; ATTEND Family Medicine
PROC: 02HV33Z Insertion of Infusion Device into Superior Vena Cava, Percutaneous Approach (ICD-10-PCS; principal; 2022-01-17 16:30)
DX: L03.115 Cellulitis of right lower limb (principal); I33.0 Acute and subacute infective endocarditis; N17.9 Acute kidney failure, unspecified; R82.1 Myoglobinuria; R78.81 Bacteremia; M86.671 Other chronic osteomyelitis, right ankle and foot; L97.919 Non-pressure chronic ulcer of unspecified part of right lower leg with unspecified severity; E87.5 Hyperkalemia; I70.238 Atherosclerosis of native arteries of right leg with ulceration of other part of lower leg; D50.9 Iron deficiency anemia, unspecified; F17.210 Nicotine dependence, cigarettes, uncomplicated; M79.89 Other specified soft tissue disorders; M77.32 Calcaneal spur, left foot; M11.872 Other specified crystal arthropathies, left ankle and foot; I70.248 Atherosclerosis of native arteries of left leg with ulceration of other part of lower leg; B95.62 Methicillin resistant Staphylococcus aureus infection as the cause of diseases classified elsewhere; M77.31 Calcaneal spur, right foot; E66.9 Obesity, unspecified; Z68.33 Body mass index [BMI] 33.0-33.9, adult; Z53.09 Procedure and treatment not carried out because of other contraindication; Z95.820 Peripheral vascular angioplasty status with implants and grafts; Z89.512 Acquired absence of left leg below knee

== ENCOUNTER → 2022-02-02 | Outpatient (CLI) | payer OTHER ==
[~2022-02-02] MED LIST changes: +ACET1TAB55 PO; +ASPI-551 PO; +CEFA2PLA3 IV; +HYDR-3715 PO; +PANT40TA29 PO; +PRED10TA2 PO; +RISATAB3 PO; +SENN18TA PO; +SIMV40TA20 PO
== END ==
LOC: M PLAIMG 10:26
PROVIDERS: ATTEND Internal Medicine Infectious Disease
DX: M86.9 Osteomyelitis, unspecified (principal)

== ENCOUNTER → 2022-02-07 | Outpatient (REF) | payer OTHER ==
[2022-02-07 16:12] LABS: BASO # 0.1 10^3/uL (0.0-0.2); BASO % 1.1 % (0.0-1.0); EOS # 0.3 10^3/uL (0.0-0.5); EOS % 4.8 % (0.0-3.0); HEMATOCRIT 34.2 % (42.0-52.0); HEMOGLOBIN 10.7 g/dl (13.5-17.5); LYMPH # 0.9 10^3/uL (1.5-5.0); LYMPH % 17.2 % (24.0-44.0); MEAN CORPUSCULAR HEMOGLOBIN 26.3 pg (27.0-33.0); MEAN CORPUSCULAR HGB CONC 31.3 g/dl (32.0-36.5); MONO # 0.6 10^3/uL (0.0-0.8); MONO % 10.4 % (2.0-8.0); NEUTROPHILS # 3.6 10^3/uL (1.5-8.5); PLATELET COUNT, AUTOMATED 162 10^3/uL (150-450); RED BLOOD COUNT 4.07 10^6/uL (4.30-6.10); WHITE BLOOD COUNT 5.5 10^3/uL (4.0-10.0)
[2022-02-07 16:31] LABS: ERYTHROCYTE SEDIMENTATION RATE 86 mm/hr (0-20)
[2022-02-07 16:43] LABS: ALBUMIN 2.6 GM/DL (3.2-5.2); ALT/SGPT < 6 U/L (12-78); BILIRUBIN,TOTAL 0.2 MG/DL (0.2-1.0); BLOOD UREA NITROGEN 11 MG/DL (7-18); CALCIUM LEVEL 8.8 MG/DL (8.8-10.2); CARBON DIOXIDE LEVEL 27 MEQ/L (21-32); CHLORIDE LEVEL 107 MEQ/L (98-107); CREATININE FOR GFR 1.03 MG/DL (0.70-1.30); GLOMERULAR FILTRATION RATE > 60.0 (>49); GLUCOSE, FASTING 107 MG/DL (70-100); POTASSIUM SERUM 4.2 MEQ/L (3.5-5.1); SODIUM LEVEL 141 MEQ/L (136-145); TOTAL PROTEIN 6.6 GM/DL (6.4-8.2)
== END ==
LOC: M SFHCPLAZ 15:39
PROVIDERS: ATTEND Nurse Practitioner Family
DX: A49.01 Methicillin susceptible Staphylococcus aureus infection, unspecified site (principal)

== ENCOUNTER 2022-02-12 14:53 | Emergency (ER) | payer OTHER ==
[~2022-02-12] VITALS: Ht 185.4 cm; Wt 119.3 kg
[2022-02-12] MEDS ORDERED: GABA-282 PO (15:00)
[2022-02-12] MEDS ORDERED: APIXABAN 5 MG TAB (ELIQUIS) PO ONE (17:25)
[2022-02-12] MEDS ORDERED: ELIQ5TAB PO (17:30)
[2022-02-12 17:44] VITALS: BP 140/71
== END 2022-02-12 18:02 | disposition home or self-care (01) ==
LOC: M ED 14:53
DX: I82.621 Acute embolism and thrombosis of deep veins of right upper extremity (principal); T82.594A Other mechanical complication of infusion catheter, initial encounter; F17.200 Nicotine dependence, unspecified, uncomplicated; Z79.01 Long term (current) use of anticoagulants; Z79.899 Other long term (current) drug therapy

== ENCOUNTER → 2022-02-13 | Outpatient (REF) | payer OTHER ==
[2022-02-14 11:56] LABS: BASO # 0.1 10^3/uL (0.0-0.2); EOS # 0.2 10^3/uL (0.0-0.5); HEMATOCRIT 35.2 % (42.0-52.0); HEMOGLOBIN 10.7 g/dl (13.5-17.5); LYMPH # 1.3 10^3/uL (1.5-5.0); LYMPH % 24.7 % (24.0-44.0); MEAN CORPUSCULAR HEMOGLOBIN 26.2 pg (27.0-33.0); MEAN CORPUSCULAR HGB CONC 30.4 g/dl (32.0-36.5); MEAN CORPUSCULAR VOLUME 86.3 fl (80.0-96.0); MONO # 0.7 10^3/uL (0.0-0.8); MONO % 12.6 % (2.0-8.0); NEUTROPHILS % 57.1 % (36.0-66.0); PLATELET COUNT, AUTOMATED 162 10^3/uL (150-450); RED BLOOD COUNT 4.08 10^6/uL (4.30-6.10); WHITE BLOOD COUNT 5.2 10^3/uL (4.0-10.0)
[2022-02-14 12:02] LABS: ALBUMIN 2.6 GM/DL (3.2-5.2); ALT/SGPT 8 U/L (12-78); BILIRUBIN,TOTAL 0.1 MG/DL (0.2-1.0); BLOOD UREA NITROGEN 14 MG/DL (7-18); C REACTIVE PROTEIN QUANTITATIV 5.27 MG/DL (0.00-0.30); CALCIUM LEVEL 8.3 MG/DL (8.8-10.2); CARBON DIOXIDE LEVEL 29 MEQ/L (21-32); CHLORIDE LEVEL 109 MEQ/L (98-107); CREATININE FOR GFR 1.08 MG/DL (0.70-1.30); GLOMERULAR FILTRATION RATE > 60.0 (>49); GLUCOSE, FASTING 78 MG/DL (70-100); SODIUM LEVEL 141 MEQ/L (136-145); TOTAL PROTEIN 6.5 GM/DL (6.4-8.2)
[2022-02-14 12:22] LABS: ERYTHROCYTE SEDIMENTATION RATE 44 mm/hr (0-20)
== END ==
LOC: M LABDRAWC 11:17
PROVIDERS: ATTEND Nurse Practitioner Family
DX: A49.01 Methicillin susceptible Staphylococcus aureus infection, unspecified site (principal)

== ENCOUNTER → 2022-03-09 | Outpatient (CLI) | payer OTHER ==
[2022-03-09 13:25] LABS: BASO # 0.1 10^3/uL (0.0-0.2); BASO % 1.3 % (0.0-1.0); EOS # 0.2 10^3/uL (0.0-0.5); EOS % 3.7 % (0.0-3.0); HEMATOCRIT 36.1 % (42.0-52.0); HEMOGLOBIN 11.2 g/dl (13.5-17.5); LYMPH # 1.2 10^3/uL (1.5-5.0); LYMPH % 21.5 % (24.0-44.0); MEAN CORPUSCULAR HEMOGLOBIN 26.2 pg (27.0-33.0); MEAN CORPUSCULAR VOLUME 84.3 fl (80.0-96.0); MONO # 0.5 10^3/uL (0.0-0.8); MONO % 9.6 % (2.0-8.0); NEUTROPHILS # 3.5 10^3/uL (1.5-8.5); NEUTROPHILS % 63.5 % (36.0-66.0); PLATELET COUNT, AUTOMATED 207 10^3/uL (150-450); RED BLOOD COUNT 4.28 10^6/uL (4.30-6.10); WHITE BLOOD COUNT 5.4 10^3/uL (4.0-10.0)
[2022-03-09 13:57] LABS: ERYTHROCYTE SEDIMENTATION RATE 77 mm/hr (0-20)
[2022-03-09 14:02] LABS: ALBUMIN 2.6 GM/DL (3.2-5.2); ALT/SGPT 10 U/L (12-78); BILIRUBIN,TOTAL 0.2 MG/DL (0.2-1.0); BLOOD UREA NITROGEN 12 MG/DL (7-18); C REACTIVE PROTEIN QUANTITATIV 4.91 MG/DL (0.00-0.30); CALCIUM LEVEL 8.4 MG/DL (8.8-10.2); CARBON DIOXIDE LEVEL 27 MEQ/L (21-32); CHLORIDE LEVEL 110 MEQ/L (98-107); CREATININE FOR GFR 1.13 MG/DL (0.70-1.30); GLOMERULAR FILTRATION RATE > 60.0 (>49); GLUCOSE, FASTING 85 MG/DL (70-100); POTASSIUM SERUM 4.2 MEQ/L (3.5-5.1); SODIUM LEVEL 139 MEQ/L (136-145); TOTAL PROTEIN 6.7 GM/DL (6.4-8.2)
== END ==
LOC: M PLALAB 10:54
PROVIDERS: ATTEND Internal Medicine Infectious Disease
DX: A49.01 Methicillin susceptible Staphylococcus aureus infection, unspecified site (principal)

== ENCOUNTER → 2022-04-07 | Outpatient (CLI) | payer OTHER ==
[~2022-04-07] MED LIST changes: +PROHANCE 279.3MG/ML 15ML VIAL ONE; +PROHANCE 279.3MG/ML 5ML VIAL ONE
== END ==
LOC: M PLAIMG 10:29
PROVIDERS: ATTEND Internal Medicine Infectious Disease
DX: M79.671 Pain in right foot (principal); A49.01 Methicillin susceptible Staphylococcus aureus infection, unspecified site
CPT/HCPCS: 73720; A9576

== ENCOUNTER → 2022-04-12 | Outpatient (REF) | payer OTHER ==
[~2022-04-12] MED LIST changes: -PROHANCE 279.3MG/ML 15ML VIAL ONE; -PROHANCE 279.3MG/ML 5ML VIAL ONE
[2022-04-12 17:48] LABS: BASO # 0.1 10^3/uL (0.0-0.2); BASO % 1.3 % (0.0-1.0); EOS # 0.2 10^3/uL (0.0-0.5); EOS % 4.2 % (0.0-3.0); HEMATOCRIT 39.6 % (42.0-52.0); HEMOGLOBIN 12.2 g/dl (13.5-17.5); LYMPH # 1.4 10^3/uL (1.5-5.0); LYMPH % 25.5 % (24.0-44.0); MEAN CORPUSCULAR HEMOGLOBIN 26.5 pg (27.0-33.0); MEAN CORPUSCULAR HGB CONC 30.8 g/dl (32.0-36.5); MEAN CORPUSCULAR VOLUME 85.9 fl (80.0-96.0); MONO # 0.6 10^3/uL (0.0-0.8); MONO % 10.4 % (2.0-8.0); NEUTROPHILS # 3.1 10^3/uL (1.5-8.5); NEUTROPHILS % 58.2 % (36.0-66.0); PLATELET COUNT, AUTOMATED 214 10^3/uL (150-450); RED BLOOD COUNT 4.61 10^6/uL (4.30-6.10); WHITE BLOOD COUNT 5.3 10^3/uL (4.0-10.0)
[2022-04-12 18:28] LABS: ERYTHROCYTE SEDIMENTATION RATE 65 mm/hr (0-20)
== END ==
LOC: M SFHCWOUN 15:58
PROVIDERS: ATTEND Surgery
DX: A49.01 Methicillin susceptible Staphylococcus aureus infection, unspecified site (principal)

== ENCOUNTER → 2022-04-19 | Outpatient (REF) | payer OTHER | LOC: M SFHCWOUN 15:41 | PROVIDERS: ATTEND Surgery | DX: I87.311 Chronic venous hypertension (idiopathic) with ulcer of right lower extremity (principal) ==

== ENCOUNTER → 2022-10-19 | Outpatient (REF) | payer OTHER | LOC: M LABDRAWC 16:57 | PROVIDERS: ATTEND Nurse Practitioner Family | DX: E22.1 Hyperprolactinemia (principal) ==

== ENCOUNTER → 2022-11-23 | Outpatient (CLI) | payer OTHER | LOC: M RAD 14:33 | PROVIDERS: ATTEND Nurse Practitioner Family | DX: Z87.891 Personal history of nicotine dependence (principal) ==

== ENCOUNTER → 2022-11-23 | Outpatient (REF) | payer OTHER ==
[2022-11-23 11:41] LABS: CORTISOL AM 18.7 UG/DL (4.3-22.4)
[2022-11-23 11:45] LABS: PROLACTIN 17.4 NG/ML (2.1-17.7)
[2022-11-23 11:46] LABS: LUTEINIZING HORMONE 3.6 mIU/ML (1.5-9.3)
== END ==
LOC: M LABDRAWC 11:07
PROVIDERS: ATTEND Nurse Practitioner Family
DX: E22.1 Hyperprolactinemia (principal)

== ENCOUNTER → 2022-12-07 | Outpatient (REF) | payer OTHER ==
[2022-12-07 17:46] LABS: BASO # 0.1 10^3/uL (0.0-0.2); BASO % 1.3 % (0.0-1.0); EOS # 0.2 10^3/uL (0.0-0.5); EOS % 3.6 % (0.0-3.0); HEMATOCRIT 40.5 % (42.0-52.0); HEMOGLOBIN 12.5 g/dl (13.5-17.5); LYMPH # 1.2 10^3/uL (1.5-5.0); LYMPH % 20.1 % (24.0-44.0); MEAN CORPUSCULAR HEMOGLOBIN 26.5 pg (27.0-33.0); MEAN CORPUSCULAR HGB CONC 30.9 g/dl (32.0-36.5); MEAN CORPUSCULAR VOLUME 85.8 fl (80.0-96.0); MONO # 0.5 10^3/uL (0.0-0.8); MONO % 8.1 % (2.0-8.0); NEUTROPHILS # 4.1 10^3/uL (1.5-8.5); NEUTROPHILS % 66.6 % (36.0-66.0); PLATELET COUNT, AUTOMATED 204 10^3/uL (150-450); RED BLOOD COUNT 4.72 10^6/uL (4.30-6.10); WHITE BLOOD COUNT 6.2 10^3/uL (4.0-10.0)
[2022-12-07 17:47] LABS: HEMOGLOBIN A1c 5.7 % (4.0-6.0)
[2022-12-07 18:14] LABS: CREATININE, URINE 66.3 MG/DL; MAU/CREAT RATIO 30.1 MCG/MG (0.0-30.0)
[2022-12-07 18:17] LABS: ALBUMIN 2.9 G/DL (3.2-5.2); ALKALINE PHOSPHATASE 84 U/L (46-116); ALT/SGPT 11 U/L (7.0-40); AST/SGOT 8 U/L (<34); BILIRUBIN,TOTAL 0.3 MG/DL (0.3-1.2); BLOOD UREA NITROGEN 9 MG/DL (9-23); CALCIUM LEVEL 8.6 MG/DL (8.3-10.6); CARBON DIOXIDE LEVEL 29 MMOL/L (20-31); CHLORIDE LEVEL 104 MMOL/L (98-107); CHOLESTEROL LEVEL 147 MG/DL (<200); CREATININE FOR GFR 1.06 MG/DL (0.70-1.30); FREE T4 1.14 NG/DL (0.89-1.76); GLOMERULAR FILTRATION RATE > 60.0 (>49); GLUCOSE, FASTING 115 MG/DL (74-106); HDL CHOLESTEROL 28.8 MG/DL (>40); NON-HDL-C 118 MG/DL; POTASSIUM SERUM 4.5 MMOL/L (3.5-5.1); SODIUM LEVEL 138 MMOL/L (136-145); TOTAL PROTEIN 6.8 G/DL (5.7-8.2); TRIGLYCERIDES LEVEL 156 MG/DL (<150)
== END ==
LOC: M SFHCCLAY 11:08
PROVIDERS: ATTEND Nurse Practitioner Family
DX: D49.7 Neoplasm of unspecified behavior of endocrine glands and other parts of nervous system (principal); L97.814 Non-pressure chronic ulcer of other part of right lower leg with necrosis of bone; I87.311 Chronic venous hypertension (idiopathic) with ulcer of right lower extremity; I82.811 Embolism and thrombosis of superficial veins of right lower extremity; I73.9 Peripheral vascular disease, unspecified; I70.203 Unspecified atherosclerosis of native arteries of extremities, bilateral legs; G89.4 Chronic pain syndrome; M79.671 Pain in right foot; I35.8 Other nonrheumatic aortic valve disorders; F17.210 Nicotine dependence, cigarettes, uncomplicated

== ENCOUNTER → 2023-02-12 | Outpatient (REF) | payer OTHER ==
[2023-02-12 19:04] LABS: BLOOD UREA NITROGEN 12 MG/DL (9-23); CALCIUM LEVEL 8.4 MG/DL (8.3-10.6); CARBON DIOXIDE LEVEL 29 MMOL/L (20-31); CHLORIDE LEVEL 107 MMOL/L (98-107); CREATININE FOR GFR 1.09 MG/DL (0.70-1.30); GLOMERULAR FILTRATION RATE > 60.0 (>49); GLUCOSE, FASTING 109 MG/DL (74-106); POTASSIUM SERUM 4.4 MMOL/L (3.5-5.1); SODIUM LEVEL 140 MMOL/L (136-145)
[2023-02-12 19:06] LABS: PROLACTIN 13.48 NG/ML (2.1-17.7); TESTOSTERONE 188 NG/DL (241-827)
== END ==
LOC: M LABDRAWC 17:02
PROVIDERS: ATTEND Internal Medicine Endocrinology, Diabetes & Metabolism
DX: E22.1 Hyperprolactinemia (principal)

== ENCOUNTER 2023-08-02 14:38 | Emergency (ER) | payer OTHER ==
[~2023-08-02] VITALS: Ht 188 cm; Wt 105.5 kg
[~2023-08-02 14:38] MED LIST changes: -GABA-283 PO; +GABA-284 PO; +SENN-111 PO; -SENN18TA PO
[2023-08-02] MEDS ORDERED: NITROGLYCERIN 0.4MG SUBL TABLET SL PRN (15:10)
[2023-08-02 15:20] LABS: BASO # 0.1 10^3/uL (0.0-0.2); BASO % 1.3 % (0.0-1.0); EOS # 0.2 10^3/uL (0.0-0.5); EOS % 3.1 % (0.0-3.0); HEMATOCRIT 42.4 % (42.0-52.0); HEMOGLOBIN 13.7 g/dl (13.5-17.5); LYMPH # 1.3 10^3/uL (1.5-5.0); LYMPH % 21.6 % (24.0-44.0); MEAN CORPUSCULAR HEMOGLOBIN 26.9 pg (27.0-33.0); MEAN CORPUSCULAR HGB CONC 32.3 g/dl (32.0-36.5); MEAN CORPUSCULAR VOLUME 83.1 fl (80.0-96.0); MONO # 0.7 10^3/uL (0.0-0.8); MONO % 10.5 % (2.0-8.0); NEUTROPHILS # 3.9 10^3/uL (1.5-8.5); PLATELET COUNT, AUTOMATED 156 10^3/uL (150-450); WHITE BLOOD COUNT 6.2 10^3/uL (4.0-10.0)
[2023-08-02 15:41] LABS: LIPASE 46 U/L (12-53)
[2023-08-02 15:44] LABS: ALBUMIN 2.9 G/DL (3.2-5.2); ALKALINE PHOSPHATASE 93 U/L (46-116); ALT/SGPT 9 U/L (7.0-40); AST/SGOT 9 U/L (<34); BILIRUBIN,DIRECT < 0.1 MG/DL (<0.4); BILIRUBIN,TOTAL 0.3 MG/DL (0.3-1.2); BLOOD UREA NITROGEN 17 MG/DL (9-23); CALCIUM LEVEL 8.8 MG/DL (8.3-10.6); CARBON DIOXIDE LEVEL 31 MMOL/L (20-31); CHLORIDE LEVEL 104 MMOL/L (98-107); CK-MB VALUE MASS < 1.0 NG/ML (<3.6); CPK CREATINE PHOSPHOKINASE 67 U/L (46-171); CREATININE FOR GFR 1.16 MG/DL (0.70-1.30); GLOMERULAR FILTRATION RATE > 60.0 (>49); GLUCOSE, FASTING 81 MG/DL (74-106); MB/CK RELATIVE INDEX 1.49 (< OR =4); POTASSIUM SERUM 3.9 MMOL/L (3.5-5.1); SODIUM LEVEL 140 MMOL/L (136-145); TOTAL PROTEIN 6.7 G/DL (5.7-8.2)
[2023-08-02] MEDS ORDERED: ISOVUE-370 76% 100ML VIAL As Ordered ONE (16:03)
[2023-08-02 16:45] VITALS: O2SAT 99
[2023-08-02 16:58] LABS: CK-MB VALUE MASS < 1.0 NG/ML (<3.6)
[2023-08-02 16:59] LABS: CPK CREATINE PHOSPHOKINASE 54 U/L (46-171); MB/CK RELATIVE INDEX 1.85 (< OR =4)
[2023-08-02] MEDS ORDERED: OMEP40CA4 PO (17:05)
[2023-08-02] MEDS ORDERED: ASPI81TA26 PO (17:08)
[2023-08-02] MEDS ORDERED: SUCRALFATE SUSP 1GM/10ML UD PO ONE (17:10)
[2023-08-02] MEDS ORDERED: PANTOPRAZOLE 40MG TAB (PROTONIX) PO ONE (17:10)
[2023-08-02 19:58] VITALS: BP 156/81; TEMP 98.4
== END 2023-08-02 20:14 | disposition home or self-care (01) ==
LOC: M ED 14:38
DX: R07.9 Chest pain, unspecified (principal); R91.8 Other nonspecific abnormal finding of lung field; Z87.891 Personal history of nicotine dependence; Z79.82 Long term (current) use of aspirin
CPT/HCPCS: 71045; 71275; 80048; 80076; 82550; 82553; 83690; 83735; 83880; 85025; 85730; 93005; 93041; 94760; 99285; Q9967

== ENCOUNTER → 2024-03-10 | Outpatient (REF) | payer OTHER ==
[~2024-03-10] MED LIST changes: +ASPI81TA26 PO; +OMEP40CA4 PO
[2024-03-10 17:43] LABS: BASO # 0.1 10^3/uL (0.0-0.2); BASO % 1.6 % (0.0-1.0); EOS # 0.2 10^3/uL (0.0-0.5); EOS % 3.8 % (0.0-3.0); HEMATOCRIT 39.6 % (42.0-52.0); HEMOGLOBIN 12.5 g/dl (13.5-17.5); LYMPH # 1.4 10^3/uL (1.5-5.0); LYMPH % 24.4 % (24.0-44.0); MEAN CORPUSCULAR HEMOGLOBIN 27.5 pg (27.0-33.0); MEAN CORPUSCULAR HGB CONC 31.6 g/dl (32.0-36.5); MEAN CORPUSCULAR VOLUME 87.2 fl (80.0-96.0); MONO # 0.6 10^3/uL (0.0-0.8); MONO % 10.2 % (2.0-8.0); NEUTROPHILS # 3.3 10^3/uL (1.5-8.5); NEUTROPHILS % 59.6 % (36.0-66.0); PLATELET COUNT, AUTOMATED 158 10^3/uL (150-450); RED BLOOD COUNT 4.54 10^6/uL (4.30-6.10); WHITE BLOOD COUNT 5.6 10^3/uL (4.0-10.0)
[2024-03-10 17:51] LABS: HEMOGLOBIN A1c 5.5 % (4.0-6.0)
[2024-03-10 18:13] LABS: ALBUMIN 2.8 G/DL (3.2-5.2); ALKALINE PHOSPHATASE 90 U/L (46-116); ALT/SGPT 12 U/L (7.0-40); AST/SGOT < 8 U/L (<34); BILIRUBIN,TOTAL 0.2 MG/DL (0.3-1.2); BLOOD UREA NITROGEN 15 MG/DL (9-23); CARBON DIOXIDE LEVEL 32 MMOL/L (20-31); CHLORIDE LEVEL 108 MMOL/L (98-107); CHOLESTEROL LEVEL 146 MG/DL (<200); CHOLESTEROL RISK RATIO 4.39 (<5); CREATININE FOR GFR 1.22 MG/DL (0.70-1.30); GLOMERULAR FILTRATION RATE > 60.0 (>49); GLUCOSE, FASTING 87 MG/DL (74-106); HDL CHOLESTEROL 33.2 MG/DL (>40); LDL CHOLESTEROL 84.4 MG/DL (<100); NON-HDL-C 112.8 MG/DL; POTASSIUM SERUM 4.5 MMOL/L (3.5-5.1); SODIUM LEVEL 142 MMOL/L (136-145); TOTAL PROTEIN 6.1 G/DL (5.7-8.2); TRIGLYCERIDES LEVEL 142 MG/DL (<150)
[2024-03-10 18:14] LABS: FREE T4 0.95 NG/DL (0.89-1.76); THYROID STIMULATING HORMONE 1.158 uIU/ML (0.55-4.78)
== END ==
LOC: M SFHCCLAY 14:03
PROVIDERS: ATTEND Nurse Practitioner Family
DX: D49.7 Neoplasm of unspecified behavior of endocrine glands and other parts of nervous system (principal); L97.814 Non-pressure chronic ulcer of other part of right lower leg with necrosis of bone; I87.311 Chronic venous hypertension (idiopathic) with ulcer of right lower extremity; I82.811 Embolism and thrombosis of superficial veins of right lower extremity; I70.203 Unspecified atherosclerosis of native arteries of extremities, bilateral legs; G89.4 Chronic pain syndrome; M79.671 Pain in right foot; I35.8 Other nonrheumatic aortic valve disorders; F17.210 Nicotine dependence, cigarettes, uncomplicated

== ENCOUNTER → 2024-03-12 | Outpatient (CLI) | payer OTHER | LOC: M CARPUL 12:01 | PROVIDERS: ATTEND Nurse Practitioner Family | DX: I35.8 Other nonrheumatic aortic valve disorders (principal) ==

== ENCOUNTER → 2024-12-03 | Outpatient (REF) | payer OTHER ==
[~2024-12-03] MED LIST changes: +GABA-1172 PO; +GABA-1635 PO; -GABA-282 PO; -GABA800T4 PO; -SENN-111 PO; +SENN-165 PO
[2024-12-03 17:10] LABS: BASO # 0.1 10^3/uL (0.0-0.2); BASO % 0.7 % (0.0-1.0); EOS # 0.2 10^3/uL (0.0-0.5); EOS % 2.8 % (0.0-3.0); HEMATOCRIT 35.3 % (42.0-52.0); HEMOGLOBIN 10.8 g/dl (13.5-17.5); LYMPH # 1.5 10^3/uL (1.5-5.0); LYMPH % 22.7 % (24.0-44.0); MEAN CORPUSCULAR HEMOGLOBIN 25.5 pg (27.0-33.0); MEAN CORPUSCULAR HGB CONC 30.6 g/dl (32.0-36.5); MEAN CORPUSCULAR VOLUME 83.3 fl (80.0-96.0); MONO # 0.6 10^3/uL (0.0-0.8); MONO % 9.1 % (2.0-8.0); NEUTROPHILS # 4.4 10^3/uL (1.5-8.5); NEUTROPHILS % 64.3 % (36.0-66.0); PLATELET COUNT, AUTOMATED 271 10^3/uL (150-450); RED BLOOD COUNT 4.24 10^6/uL (4.30-6.10); WHITE BLOOD COUNT 6.8 10^3/uL (4.0-10.0)
[2024-12-03 17:13] LABS: C REACTIVE PROTEIN QUANTITATIV 5.78 MG/DL (<1.0)
[2024-12-03 17:14] LABS: ALBUMIN 2.5 G/DL (3.2-5.2); ALKALINE PHOSPHATASE 67 U/L (40-129); ALT/SGPT 10 U/L (7.0-40); AST/SGOT < 8 U/L (<34); BILIRUBIN,TOTAL 0.2 MG/DL (0.3-1.2); BLOOD UREA NITROGEN 12 MG/DL (9-23); CALCIUM LEVEL 8.6 MG/DL (8.3-10.6); CARBON DIOXIDE LEVEL 32 MMOL/L (20-31); CHLORIDE LEVEL 104 MMOL/L (98-107); CHOLESTEROL LEVEL 113 MG/DL (<200); CHOLESTEROL RISK RATIO 3.47 (<5); CREATININE FOR GFR 1.04 MG/DL (0.70-1.30); FREE T4 1.07 NG/DL (0.89-1.76); GLOMERULAR FILTRATION RATE > 60.0 (>49); GLUCOSE, FASTING 78 MG/DL (74-106); HDL CHOLESTEROL 32.5 MG/DL (>40); LDL CHOLESTEROL 63.3 MG/DL (<100); NON-HDL-C 80.5 MG/DL; POTASSIUM SERUM 4.8 MMOL/L (3.5-5.1); SODIUM LEVEL 142 MMOL/L (136-145); THYROID STIMULATING HORMONE 1.112 uIU/ML (0.55-4.78); TOTAL PROTEIN 6.7 G/DL (5.7-8.2); TRIGLYCERIDES LEVEL 86 MG/DL (<150)
[2024-12-03 17:15] LABS: ERYTHROCYTE SEDIMENTATION RATE 99 mm/hr (0-20)
[2024-12-03 17:33] LABS: PROLACTIN 296.51 NG/ML (2.1-17.7)
[2024-12-04 09:37] LABS: IRON (FE) 17 UG/DL (65-175)
[2024-12-04 09:39] LABS: FERRITIN 114.2 NG/ML (10.5-307.3); FOLLICLE STIMULATING HORMONE 3.8 mIU/ML (1.4-18.1); LUTEINIZING HORMONE 3.5 mIU/ML (1.5-9.3)
[2024-12-04 09:40] LABS: FOLATE 9.01 NG/ML (>5.4)
== END ==
LOC: M SFHCCLAY 13:59
PROVIDERS: ATTEND Nurse Practitioner Family
DX: D49.7 Neoplasm of unspecified behavior of endocrine glands and other parts of nervous system (principal); L97.814 Non-pressure chronic ulcer of other part of right lower leg with necrosis of bone; I87.311 Chronic venous hypertension (idiopathic) with ulcer of right lower extremity; I82.811 Embolism and thrombosis of superficial veins of right lower extremity; I70.203 Unspecified atherosclerosis of native arteries of extremities, bilateral legs; G89.4 Chronic pain syndrome; M79.671 Pain in right foot; I35.8 Other nonrheumatic aortic valve disorders; F17.210 Nicotine dependence, cigarettes, uncomplicated

== ENCOUNTER → 2024-12-05 | Outpatient (CLI) | payer MEDICARE, OTHER ==
[~2024-12-05] MED LIST changes: +PROHANCE 279.3MG/ML 5ML VIAL As Ordered ONE
[2024-12-05 18:08] LABS: FERRITIN 99.6 NG/ML (10.5-307.3)
[2024-12-05 18:09] LABS: FOLLICLE STIMULATING HORMONE 4.8 mIU/ML (1.4-18.1)
[2024-12-05 18:10] LABS: LUTEINIZING HORMONE 6.8 mIU/ML (1.5-9.3)
[2024-12-05 18:11] LABS: FOLATE 10.65 NG/ML (>5.4)
== END ==
LOC: M RAD 15:54
PROVIDERS: ATTEND Nurse Practitioner Family
DX: D47.9 Neoplasm of uncertain behavior of lymphoid, hematopoietic and related tissue, unspecified (principal); R79.89 Other specified abnormal findings of blood chemistry
CPT/HCPCS: 36415; 70553; 82024; 82728; 82746; 83001; 83002; 83540; A9576

== ENCOUNTER → 2025-04-28 | Outpatient (REF) | payer MEDICARE, MEDICAID ==
[~2025-04-28] MED LIST changes: -PROHANCE 279.3MG/ML 5ML VIAL As Ordered ONE
[2025-04-28 19:00] LABS: BASO # 0.1 10^3/uL (0.0-0.2); BASO % 1.1 % (0.0-1.0); EOS # 0.2 10^3/uL (0.0-0.5); EOS % 2.5 % (0.0-3.0); LYMPH # 1.4 10^3/uL (1.5-5.0); LYMPH % 19.3 % (24.0-44.0); MONO # 0.7 10^3/uL (0.0-0.8); MONO % 9.4 % (2.0-8.0); NEUTROPHILS # 4.8 10^3/uL (1.5-8.5); NEUTROPHILS % 67.4 % (36.0-66.0); PLATELET COUNT, AUTOMATED 196 10^3/uL (150-450)
[2025-04-28 20:04] LABS: ESTIMATED AVERAGE GLUCOSE 117.0 MG/DL (60-110)
[2025-04-28 22:02] LABS: IRON (FE) 24.0 UG/DL (65-175)
[2025-04-28 22:03] LABS: ALT/SGPT 11.0 U/L (7.0-40); AST/SGOT 12.0 U/L (<34); CALCIUM LEVEL 8.6 MG/DL (8.3-10.6); CARBON DIOXIDE LEVEL 26.0 MMOL/L (20-31); CHLORIDE LEVEL 107.0 MMOL/L (98-107); CHOLESTEROL LEVEL 149.0 MG/DL (<200); CHOLESTEROL RISK RATIO 3.72 (<5); CREATININE FOR GFR 1.13 MG/DL (0.70-1.30); FREE T4 1.13 NG/DL (0.89-1.76); GLOMERULAR FILTRATION RATE 72.1 (>49); LDL CHOLESTEROL 91.4 MG/DL (<100); NON-HDL-C 109.0 MG/DL; PERCENT SATURATION 7.9 % (19.7-50.0); POTASSIUM SERUM 5.3 MMOL/L (3.5-5.1); PSA SCREENING 0.71 NG/ML (< 4.00); SODIUM LEVEL 145.0 MMOL/L (136-145); TRIGLYCERIDES LEVEL 88.0 MG/DL (<150); VITAMIN B12 LEVEL 428.0 PG/ML (211-911)
[2025-04-28 22:20] LABS: PROLACTIN 321.46 NG/ML (2.1-17.7)
== END ==
LOC: M SFHCCLAY 10:42
PROVIDERS: ATTEND Nurse Practitioner Family
DX: D49.7 Neoplasm of unspecified behavior of endocrine glands and other parts of nervous system (principal); L97.814 Non-pressure chronic ulcer of other part of right lower leg with necrosis of bone; I87.311 Chronic venous hypertension (idiopathic) with ulcer of right lower extremity; I82.811 Embolism and thrombosis of superficial veins of right lower extremity; I73.9 Peripheral vascular disease, unspecified; I70.203 Unspecified atherosclerosis of native arteries of extremities, bilateral legs; G89.4 Chronic pain syndrome; M79.671 Pain in right foot; I35.8 Other nonrheumatic aortic valve disorders; F17.210 Nicotine dependence, cigarettes, uncomplicated; E53.8 Deficiency of other specified B group vitamins; Z12.5 Encounter for screening for malignant neoplasm of prostate; Z79.899 Other long term (current) drug therapy
CPT/HCPCS: 80053; 80061; 82607; 82746; 83036; 83550; 84146; 84439; 84443; 85025; G0103